=== PATIENT | female | born 1950 | race Asian ===

== ENCOUNTER 2019-04-24 12:58 | Outpatient (CLI) | payer MEDICARE ==
--- NOTE | 2019-04-24 13:43 | ULT ---
EXAM: Right lower extremity venous Doppler HISTORY: Patient diagnosed with DVT in the right foot after right hip placement surgery in December. Patient has been on Eliquis. Right lower extremity edema. COMPARISON: None available. FINDINGS: Grayscale, color-flow, Doppler evaluation, spectral analysis of the right lower extremity venous stru ctures is performed with 2-D imaging. The right common femoral, superficial femoral, popliteal, posterior tibial, proximal greater saphenous and profunda femoral veins are imaged. There is normal luminal compressibility, flow, and augmentation in the visualized deep venous structu res of the right lower extremity. IMPRESSION: No evidence of a deep vein thrombosis in the visualized deep venous structures right lower extremity.
== END 2019-04-24 12:59 | disposition home or self-care (01) ==
LOC: SCSULT 12:58
PROVIDERS: ATTEND Family Medicine
DX: I82.411 Acute embolism and thrombosis of right femoral vein (principal)

== ENCOUNTER 2021-04-24 16:16 | Day surgery (SDC) | payer MEDICARE ==
[2021-04-24 17:35] VITALS: BMI 26.5
[2021-04-24] MEDS ORDERED: Acetaminophen 500 MG TAB PO SCH (20:45)
[2021-04-24] MEDS ORDERED: diphenhydrAMINE 25 MG CAP PO SCH (20:45)
[2021-04-24 23:54] VITALS: TEMP 98.3
[2021-04-25 04:47] LABS: Band 6 % (5-11); Eosinophils 5 % (0-10); Lymphocytes 27 % (21-51); MDiff Complete? YES; Metamyelocyte 1 % (0-0); Monocytes 6 % (0-10); Neutrophil 55 % (42-75); Nucleated RBC 4 % (0); Platelet Morphology Comment Appears Decreased
[2021-04-25 04:48] LABS: Hemoglobin 10.1 g/dL (12.0-16.0); Mean Corpuscular HGB CONC 34.8 g/dL (32.0-36.0); Mean Corpuscular Hemoglobin 31.6 pg (27.0-31.0); Mean Corpuscular Volume 90.7 fL (78.0-98.0); Mean Platelet Volume 10.7 fL (7.4-10.4); Platelet Count 57 thou/uL (130-400); RBC Distribution Width 15.8 % (11.5-14.5); Red Blood Cell (RBC) Count 3.19 mill/uL (4.20-5.40); White Blood Cell (WBC) Count 11.5 thou/uL (4.8-10.8)
[2021-04-25 05:06] VITALS: BP 181/82
== END 2021-04-25 05:44 | disposition home or self-care (01) ==
LOC: ONC/OP 16:16 → ONC 16:36 → ONC/OP 04-25 05:44
PROVIDERS: ATTEND Internal Medicine Hematology & Oncology
PROC: 30233N1 Transfusion of Nonautologous Red Blood Cells into Peripheral Vein, Percutaneous Approach (ICD-10-PCS; principal; 2021-04-24)
DX: D64.9 Anemia, unspecified (principal); D69.6 Thrombocytopenia, unspecified; E11.22 Type 2 diabetes mellitus with diabetic chronic kidney disease; N18.4 Chronic kidney disease, stage 4 (severe); N25.81 Secondary hyperparathyroidism of renal origin; D63.1 Anemia in chronic kidney disease
CPT/HCPCS: 36415; 36430; 80048; 82306; 83036; 83970; 85025; 86850; 86900; 86901; P9016

== ENCOUNTER 2021-06-17 11:15 | Day surgery (SDC) | payer MEDICARE ==
[2021-06-17] MEDS ORDERED: Sodium Chloride 0.9% 20 ML ONE ×2 (11:39→12:09)
[2021-06-17] MEDS ORDERED: Acetaminophen 500 MG TAB PO PRN (12:11)
[2021-06-17] MEDS ORDERED: diphenhydrAMINE 25 MG CAP PO PRN (12:11)
[2021-06-17] MEDS ORDERED: Amlodipine 5 MG TAB PO SCH (15:00)
[2021-06-17 15:21] VITALS: BP 198/83; TEMP 98.5
== END 2021-06-17 17:26 | disposition home or self-care (01) ==
LOC: ONC/OP 11:15
PROVIDERS: ATTEND Internal Medicine Hematology & Oncology
PROC: 30233N1 Transfusion of Nonautologous Red Blood Cells into Peripheral Vein, Percutaneous Approach (ICD-10-PCS; principal; 2021-06-17)
DX: D64.9 Anemia, unspecified (principal); D69.6 Thrombocytopenia, unspecified
CPT/HCPCS: 36430; 86850; 86900; 86901; P9016

== ENCOUNTER 2021-08-06 10:33 | Day surgery (SDC) | payer MEDICARE ==
[2021-08-06] MEDS ORDERED: diphenhydrAMINE 25 MG CAP ONE (11:20)
[2021-08-06] MEDS ORDERED: Acetaminophen 500 MG TAB ONE (11:20)
[2021-08-06] MEDS ORDERED: Sodium Chloride 0.9% 10 ML ONE ×2 (11:20)
[2021-08-06] MEDS ORDERED: diphenhydrAMINE 25 MG CAP PO SCH (12:15)
[2021-08-06] MEDS ORDERED: Acetaminophen 500 MG TAB PO SCH (12:15)
[2021-08-06 14:17] VITALS: TEMP 98
[2021-08-06 16:04] VITALS: BP 143/65
== END 2021-08-06 16:05 | disposition home or self-care (01) ==
LOC: ONC/OP 10:33
PROVIDERS: ATTEND Internal Medicine Hematology & Oncology
PROC: 30233N1 Transfusion of Nonautologous Red Blood Cells into Peripheral Vein, Percutaneous Approach (ICD-10-PCS; principal; 2021-08-06)
DX: D64.9 Anemia, unspecified (principal); D69.6 Thrombocytopenia, unspecified
CPT/HCPCS: 36430; 86850; 86900; 86901; P9016

== ENCOUNTER 2021-09-16 11:47 | Day surgery (SDC) | payer MEDICARE ==
[2021-09-16] MEDS ORDERED: Sodium Chloride 0.9% 10 ML ONE (11:56)
[2021-09-16] MEDS ORDERED: Acetaminophen 500 MG TAB ONE (12:22)
[2021-09-16] MEDS ORDERED: diphenhydrAMINE 25 MG CAP ONE (12:22)
[2021-09-16 15:00] VITALS: BP 182/72; TEMP 98.1
== END 2021-09-16 16:36 | disposition home or self-care (01) ==
LOC: ONC/OP 11:47
PROVIDERS: ATTEND Internal Medicine Hematology & Oncology
PROC: 30233N1 Transfusion of Nonautologous Red Blood Cells into Peripheral Vein, Percutaneous Approach (ICD-10-PCS; principal; 2021-09-16)
DX: D64.9 Anemia, unspecified (principal); D69.6 Thrombocytopenia, unspecified
CPT/HCPCS: 36430; 86850; 86900; 86901; P9016

== ENCOUNTER 2021-10-14 09:12 | Day surgery (SDC) | payer MEDICARE ==
[2021-10-14] MEDS ORDERED: Sodium Chloride 0.9% 10 ML ONE ×2 (09:31)
[2021-10-14] MEDS ORDERED: Acetaminophen 500 MG TAB ONE (09:31)
[2021-10-14] MEDS ORDERED: diphenhydrAMINE 25 MG CAP ONE (09:31)
[2021-10-14] MEDS ORDERED: Acetaminophen 500 MG TAB PO PRN (09:32)
[2021-10-14] MEDS ORDERED: diphenhydrAMINE 25 MG CAP PO PRN (09:33)
[2021-10-14 12:54] VITALS: BP 127/60; TEMP 98
== END 2021-10-14 12:55 | disposition home or self-care (01) ==
LOC: ONC/OP 09:12
PROVIDERS: ATTEND Internal Medicine Hematology & Oncology
PROC: 30233N1 Transfusion of Nonautologous Red Blood Cells into Peripheral Vein, Percutaneous Approach (ICD-10-PCS; principal; 2021-10-14)
DX: D64.9 Anemia, unspecified (principal); D69.6 Thrombocytopenia, unspecified
CPT/HCPCS: 36430; 86850; 86900; 86901; P9016

== ENCOUNTER 2021-12-23 22:45 | Emergency (ER) | payer MEDICARE ==
[2021-12-23] MEDS ORDERED: Fentanyl 100 MCG/2 ML VIAL ONE (23:42)
[2021-12-23 23:56] LABS: ALT (SGPT) 7 U/L (8-55); AST (SGOT) 23 U/L (5-34); Anion Gap 18 mmol/L (10-20); BUN (Urea Nitrogen) 63 mg/dL (9.8-20.1); Bilirubin, Total 0.4 mg/dL (0.2-1.2); Calc. Creatinine Clearance 0 mL/min (70-130); Carbon Dioxide 17 mmol/L (23-31); Chloride 106 mmol/L (98-107); Globulin 3.3 g/dL (2.4-3.5); Glucose 161 mg/dL (83-110); Potassium 5.6 mmol/L (3.5-5.1); Protein, Total 7.3 g/dL (5.8-8.1); Sodium 135 mmol/L (136-145)
[2021-12-24 00:17] LABS: Band 15 % (5-11); Hemoglobin 7.7 g/dL (12.0-16.0); Hypochromia SLIGHT = 6-15 cells (100X) (0-5/hpf); Lymphocytes 19 % (21-51); MDiff Complete? YES; Mean Corpuscular HGB CONC 32.9 g/dL (32.0-36.0); Mean Corpuscular Hemoglobin 30.4 pg (27.0-31.0); Mean Corpuscular Volume 92.3 fL (78.0-98.0); Mean Platelet Volume 10.8 fL (7.4-10.4); Metamyelocyte 3 % (0-0); Monocytes 10 % (0-10); Myelocyte 2 % (0-0); Neutrophil 51 % (42-75); Nucleated RBC 1 % (0); Platelet Count 56 thou/uL (130-400); Platelet Morphology Comment Appears Decreased; RBC Distribution Width 18.2 % (11.5-14.5); Red Blood Cell (RBC) Count 2.52 mill/uL (4.20-5.40)
[2021-12-24 01:37] LABS: Alkaline Phosphatase 139 U/L (40-110)
[2021-12-24] MEDS ORDERED: HYDROcodone/Acetaminophen 10/325 mg Tablet ONE (01:42)
== END 2021-12-24 01:50 | disposition home or self-care (01) ==
LOC: ERS 22:45
DX: S30.0XXA Contusion of lower back and pelvis, initial encounter (principal); S30.1XXA Contusion of abdominal wall, initial encounter; I12.9 Hypertensive chronic kidney disease with stage 1 through stage 4 chronic kidney disease, or unspecified chronic kidney disease; E11.22 Type 2 diabetes mellitus with diabetic chronic kidney disease; N18.4 Chronic kidney disease, stage 4 (severe); D63.1 Anemia in chronic kidney disease; Z79.899 Other long term (current) drug therapy; W19.XXXA Unspecified fall, initial encounter
CPT/HCPCS: 36415; 71250; 74177; 80053; 84484; 85025; 93005; 94760; 96374; J3010

== ENCOUNTER 2022-01-06 11:17 | Day surgery (SDC) | payer MEDICARE ==
[2022-01-06] MEDS ORDERED: Acetaminophen 500 MG TAB ONE (12:09)
[2022-01-06] MEDS ORDERED: diphenhydrAMINE 25 MG CAP ONE (12:09)
[2022-01-06 15:05] VITALS: BP 195/81; TEMP 97.9
== END 2022-01-06 15:05 | disposition home or self-care (01) ==
LOC: ONC/OP 11:17
PROVIDERS: ATTEND Internal Medicine Hematology & Oncology
PROC: 30233N1 Transfusion of Nonautologous Red Blood Cells into Peripheral Vein, Percutaneous Approach (ICD-10-PCS; principal; 2022-01-06)
DX: D64.9 Anemia, unspecified (principal); D69.6 Thrombocytopenia, unspecified
CPT/HCPCS: 36430; 86850; 86900; 86901; P9016

== ENCOUNTER 2022-02-02 16:04 | Day surgery (SDC) | payer MEDICARE ==
[2022-02-02] MEDS ORDERED: Acetaminophen 500 MG TAB PO PRN (16:16)
[2022-02-02] MEDS ORDERED: diphenhydrAMINE 25 MG CAP PO PRN (16:17)
[2022-02-02 16:36] VITALS: BMI 24.5
[2022-02-02] MEDS ORDERED: Acetaminophen 500 MG TAB ONE (17:31)
[2022-02-02] MEDS ORDERED: diphenhydrAMINE 50 MG/ML VIAL ONE (17:31)
[2022-02-02] MEDS ORDERED: diphenhydrAMINE 25 MG CAP ONE (17:35)
== END 2022-02-02 21:55 | disposition home or self-care (01) ==
LOC: SDC 16:04
PROVIDERS: ATTEND Internal Medicine Hematology & Oncology
PROC: 30233N1 Transfusion of Nonautologous Red Blood Cells into Peripheral Vein, Percutaneous Approach (ICD-10-PCS; principal; 2022-02-02)
DX: D64.9 Anemia, unspecified (principal); D69.6 Thrombocytopenia, unspecified; N18.4 Chronic kidney disease, stage 4 (severe); N25.81 Secondary hyperparathyroidism of renal origin
CPT/HCPCS: 36430; 80048; 83970; 86850; 86900; 86901; 86920; P9016; J1200

== ENCOUNTER 2022-03-31 09:56 | Day surgery (SDC) | payer MEDICARE ==
[2022-03-31] MEDS ORDERED: Acetaminophen 500 MG TAB ONE (10:08)
[2022-03-31] MEDS ORDERED: diphenhydrAMINE 25 MG CAP ONE (10:08)
[2022-03-31 13:57] VITALS: BP 171/71; TEMP 98.2
== END 2022-03-31 13:58 | disposition home or self-care (01) ==
LOC: ONC/OP 09:56
PROVIDERS: ATTEND Internal Medicine Hematology & Oncology
PROC: 30233N1 Transfusion of Nonautologous Red Blood Cells into Peripheral Vein, Percutaneous Approach (ICD-10-PCS; principal; 2022-03-31)
DX: D64.9 Anemia, unspecified (principal); D69.6 Thrombocytopenia, unspecified
CPT/HCPCS: 36430; 86850; 86900; 86901; P9016

== ENCOUNTER 2022-04-20 13:06 | Outpatient (CLI) | payer MEDICARE | END 2022-04-20 13:07 | disposition home or self-care (01) | LOC: LABBT 13:06 | PROVIDERS: ATTEND Surgery | DX: Z01.818 Encounter for other preprocedural examination (principal); D75.81 Myelofibrosis; Z20.822 Contact with and (suspected) exposure to COVID-19 | CPT/HCPCS: 71046; 87811; 93005; 93010 ==

== ENCOUNTER 2022-04-23 08:06 | Day surgery (SDC) | payer MEDICARE ==
[2022-04-21 11:41] VITALS: BMI 22.1
[2022-04-23] MEDS ORDERED: Lidocaine 1% MPF 2 ML VIAL ONE (08:33)
[2022-04-23] MEDS ORDERED: Acetaminophen 500 MG TAB ONE (08:33)
[2022-04-23] MEDS ORDERED: CEFAZOLIN 2 GM VIAL ONE (08:33)
[2022-04-23] MEDS ORDERED: Sodium Chloride 0.9% 100 ML ONE (08:34)
[2022-04-23] MEDS ORDERED: Bupivacaine/Epinephrine 0.25% 30 ML VIAL ONE (09:24)
[2022-04-23] MEDS ORDERED: fentaNYL Citrate/PF 100 MCG/2 ML SYRINGE ONE (09:28)
[2022-04-23] MEDS ORDERED: Propofol 500 MG/50 ML VIAL ONE (09:29)
[2022-04-23] MEDS ORDERED: Ondansetron PF 4 MG/2 ML Vial ONE ×2 (09:29→09:42)
[2022-04-23] MEDS ORDERED: Famotidine/PF 20 mg/2ml Vial ONE (09:29)
[2022-04-23] MEDS ORDERED: Metoclopramide HCl 10 MG/2 ML VIAL ONE ×2 (09:29→09:42)
[2022-04-23] MEDS ORDERED: ePHEDrine 50 MG/ML VIAL ONE (09:42)
[2022-04-23] MEDS ORDERED: Phenylephrine 10 MG/ML VIAL ONE (09:42)
[2022-04-23] MEDS ORDERED: Lidocaine 1% PF 5 ML VIAL ONE (09:42)
[2022-04-23 09:57] LABS: Anion Gap 13 mmol/L (10-20); BUN (Urea Nitrogen) 51 mg/dL (9.8-20.1); Calc. Creatinine Clearance 15 mL/min (70-130); Calcium 9.1 mg/dL (7.8-10.44); Carbon Dioxide 21 mmol/L (23-31); Chloride 109 mmol/L (98-107); Estimated GFR 17; Glucose 107 mg/dL (83-110); Potassium 4.4 mmol/L (3.5-5.1); Sodium 139 mmol/L (136-145)
== END 2022-04-23 11:40 | disposition home or self-care (01) ==
LOC: SDC 08:06
PROVIDERS: ATTEND Surgery
PROC: 02HV33Z Insertion of Infusion Device into Superior Vena Cava, Percutaneous Approach (ICD-10-PCS; principal; 2022-04-23)
DX: D75.81 Myelofibrosis (principal); I12.9 Hypertensive chronic kidney disease with stage 1 through stage 4 chronic kidney disease, or unspecified chronic kidney disease; E11.22 Type 2 diabetes mellitus with diabetic chronic kidney disease; N18.30 Chronic kidney disease, stage 3 unspecified; M10.30 Gout due to renal impairment, unspecified site; E78.5 Hyperlipidemia, unspecified; Z79.899 Other long term (current) drug therapy; Z88.2 Allergy status to sulfonamides
CPT/HCPCS: 36561; 80048; C1788; J0690; J1642; J2405; J2704; J2765; J3490; S0028

== ENCOUNTER 2022-10-07 09:17 | Day surgery (SDC) | payer MEDICARE ==
[~2022-10-07 09:17] MED LIST: Acetaminophen 500 MG TAB PO SCH; diphenhydrAMINE 25 MG CAP PO SCH
[2022-10-07] MEDS ORDERED: Acetaminophen 500 MG TAB ONE (10:36)
[2022-10-07] MEDS ORDERED: diphenhydrAMINE 25 MG CAP ONE (10:36)
[2022-10-07 17:29] VITALS: BP 187/82; TEMP 98
== END 2022-10-07 17:31 | disposition home or self-care (01) ==
LOC: ONC/OP 09:17
PROVIDERS: ATTEND Internal Medicine Hematology & Oncology
PROC: 30233N1 Transfusion of Nonautologous Red Blood Cells into Peripheral Vein, Percutaneous Approach (ICD-10-PCS; principal; 2022-10-07)
DX: D64.9 Anemia, unspecified (principal); D69.6 Thrombocytopenia, unspecified
CPT/HCPCS: 36430; 86850; 86900; 86901; J1642; P9016

== ENCOUNTER 2022-10-08 19:05 | Inpatient (IN) | payer MEDICARE ==
[2022-10-08 20:14] LABS: Hemoglobin 11.1 g/dL (12.0-16.0); Mean Corpuscular HGB CONC 32.8 g/dL (32.0-36.0); Mean Corpuscular Hemoglobin 29.5 pg (27.0-31.0); Mean Platelet Volume 6.4 fL (7.4-10.4); Platelet Count 61 10x3/uL (130-400); RBC Distribution Width 18.1 % (11.5-14.5); Red Blood Cell (RBC) Count 3.77 mill/uL (4.20-5.40); White Blood Cell (WBC) Count 19.5 10x3/uL (4.8-10.8)
[2022-10-08 20:29] LABS: ALT (SGPT) 13 U/L (8-55); AST (SGOT) 22 U/L (5-34); Albumin 3.8 g/dL (3.4-4.8); Alkaline Phosphatase 198 U/L (40-110); Anion Gap 14 mmol/L (10-20); BUN (Urea Nitrogen) 52 mg/dL (9.8-20.1); Calc. Creatinine Clearance 0 mL/min (70-130); Calcium 9.7 mg/dL (7.8-10.44); Carbon Dioxide 17 mmol/L (23-31); Chloride 110 mmol/L (98-107); Estimated GFR 15; Globulin 3.5 g/dL (2.4-3.5); Glucose 128 mg/dL (83-110); Potassium 5.1 mmol/L (3.5-5.1); Protein, Total 7.3 g/dL (5.8-8.1); Sodium 136 mmol/L (136-145)
[2022-10-08 20:46] LABS: Anisocytosis SLIGHT = 6-15 cells (100X) (0-5/hpf); Band 16 % (5-11); Blast 1 % (0-0); Eosinophils 2 % (0-10); Lymphocytes 7 % (21-51); MDiff Complete? YES; Metamyelocyte 2 % (0-0); Monocytes 6 % (0-10); Myelocyte 1 % (0-0); Neutrophil 62 % (42-75); Nucleated RBC 4 % (0); Platelet Morphology Comment Appears Decreased; Reflex for Review?? NO; Tear Drops SLIGHT = 2-5 cells (100X) (0-1/hpf)
[2022-10-08 20:47] LABS: CKMB 1.9 ng/mL (0-6.6)
[2022-10-08] MEDS ORDERED: Nitroglycerin 0.4 MG TAB 1 EACH ONE (21:37)
[2022-10-08] MEDS ORDERED: Furosemide 40 MG/4 ML VIAL ONE (21:37)
[2022-10-08] MEDS ORDERED: Cefepime 2 GM VIAL ONE (21:37)
[2022-10-08] MEDS ORDERED: VANCOMYCIN 1.25 GM/250 ML BAG 1.25 GM in Premix Bag 1 BAG IVPB SCH (21:45)
[2022-10-08] MEDS ORDERED: Acetaminophen 500 MG TAB ONE (22:22)
[2022-10-09] MEDS ORDERED: Ondansetron PF 4 MG/2 ML Vial IVP PRN (00:31)
[2022-10-09] MEDS ORDERED: Acetaminophen 325 MG TAB PO PRN (00:31)
[2022-10-09] MEDS ORDERED: NIFEdipine XL 90 MG TAB PO SCH (00:45)
[2022-10-09] MEDS ORDERED: Vancomycin Dose by Levels Sliding Scale (Wt <71) FS SCH (01:15)
[2022-10-09 01:48] LABS: Troponin I 0.072 ng/mL (< 0.028)
[2022-10-09] MEDS ORDERED: Nitroglycerin 2% Ointment 1 INCH/1 GM Packet TOP SCH (02:30)
[2022-10-09 04:53] LABS: Troponin I 0.056 ng/mL (< 0.028)
[2022-10-09 04:58] LABS: Anion Gap 14 mmol/L (10-20); BUN (Urea Nitrogen) 56 mg/dL (9.8-20.1); Calc. Creatinine Clearance 13 mL/min (70-130); Calcium 9.1 mg/dL (7.8-10.44); Carbon Dioxide 16 mmol/L (23-31); Chloride 109 mmol/L (98-107); Estimated GFR 15; Glucose 264 mg/dL (83-110); Potassium 4.7 mmol/L (3.5-5.1); Sodium 134 mmol/L (136-145)
[2022-10-09 05:16] LABS: Mean Corpuscular HGB CONC 33.3 g/dL (32.0-36.0); Mean Corpuscular Hemoglobin 30.1 pg (27.0-31.0); Mean Corpuscular Volume 90.3 fl (78.0-98.0); Platelet Count 60 10x3/uL (130-400); RBC Distribution Width 17.8 % (11.5-14.5); Red Blood Cell (RBC) Count 3.32 mill/uL (4.20-5.40); White Blood Cell (WBC) Count 18.4 10x3/uL (4.8-10.8)
[2022-10-09 05:17] LABS: Anisocytosis SLIGHT = 6-15 cells (100X) (0-5/hpf); Band 6 % (5-11); Eosinophils 1 % (0-10); Lymphocytes 4 % (21-51); MDiff Complete? YES; Monocytes 5 % (0-10); Myelocyte 1 % (0-0); Neutrophil 83 % (42-75); Nucleated RBC 1 % (0); Platelet Morphology Comment Appears Decreased; Tear Drops SLIGHT = 2-5 cells (100X) (0-1/hpf)
[2022-10-09] MEDS ORDERED: Dextrose 50% Abboject 50 ML SYRINGE IVP PRN (06:00)
[2022-10-09] MEDS ORDERED: Dextrose 5% in Water 1,000 ML IV PRN ×2 (06:00→12:04)
[2022-10-09] MEDS ORDERED: HumaLOG 300 UNITS/3 ML VIAL SC PRN (06:00)
[2022-10-09] MEDS: Furosemide 20 MG/2 ML VIAL SLOW IVP SCH ×2 (06:36→14:52)
[2022-10-09] MEDS: HumaLOG 300 UNITS/3 ML VIAL SC PRN (06:37)
[2022-10-09 07:01] LABS: Magnesium 2.1 mg/dL (1.6-2.6)
[2022-10-09 07:33] LABS: SARS-CoV-2 NAA Rapid Test Not Detected (NotDetected)
[2022-10-09] MEDS: predniSONE 20 MG TAB PO SCH (09:32)
[2022-10-09] MEDS: hydrALAZINE 25 MG TAB PO SCH ×3 (09:32→21:20)
[2022-10-09] MEDS: NIFEdipine XL 90 MG TAB PO SCH (09:33)
[2022-10-09] MEDS ORDERED: Dextrose 50% Abboject 50 ML SYRINGE SLOW IVP PRN (12:04)
[2022-10-09 14:19] LABS: Legionella Urinary Ag Negative (Negative)
[2022-10-09] MEDS: Sodium Bicarbonate Tab 325 MG TAB PO SCH ×2 (14:52→21:20)
[2022-10-09] MEDS ORDERED: Non-Formulary Item 1 EACH (Hydralazine Hcl [Hydralazine Hcl] 100 MG Tablet) PO SCH (15:00)
[2022-10-09] MEDS ORDERED: Cefepime 1 GM in Sodium Chloride 0.9% 100 ML IVPB SCH (21:00)
[2022-10-09 22:58] LABS: Vancomycin, Random 18.9 ug/mL (See Comment)
[2022-10-09] MEDS ORDERED: Cefepime 2 GM in Sodium Chloride 0.9% 100 ML IVPB SCH (23:00)
[2022-10-09] MEDS ORDERED: Vancomycin HCl 250 MG in Sodium Chloride 0.9% 100 ML IV SCH (23:59)
[2022-10-10 05:33] LABS: Anion Gap 14 mmol/L (10-20); BUN (Urea Nitrogen) 59 mg/dL (9.8-20.1); Calc. Creatinine Clearance 13 mL/min (70-130); Calcium 9.5 mg/dL (7.8-10.44); Carbon Dioxide 18 mmol/L (23-31); Chloride 108 mmol/L (98-107); Estimated GFR 14; Glucose 114 mg/dL (83-110); Magnesium 2.2 mg/dL (1.6-2.6); Potassium 4.3 mmol/L (3.5-5.1); Sodium 136 mmol/L (136-145); Uric Acid 13.6 mg/dL (2.6-6.0)
[2022-10-10 05:41] LABS: Vancomycin, Random 23.6 ug/mL (See Comment)
[2022-10-10 05:49] LABS: Band 4 % (5-11); Eosinophils 1 % (0-10); Hemoglobin 9.5 g/dL (12.0-16.0); Hypochromia SLIGHT = 6-15 cells (100X) (0-5/hpf); Lymphocytes 13 % (21-51); MDiff Complete? YES; Mean Corpuscular HGB CONC 32.8 g/dL (32.0-36.0); Mean Corpuscular Hemoglobin 29.8 pg (27.0-31.0); Mean Corpuscular Volume 91.1 fl (78.0-98.0); Mean Platelet Volume 11.1 fL (7.4-10.4); Monocytes 11 % (0-10); Neutrophil 70 % (42-75); Nucleated RBC 1 % (0); Platelet Count 60 10x3/uL (130-400); Platelet Morphology Comment Appears Decreased; RBC Distribution Width 17.9 % (11.5-14.5); Reactive Lymphocytes 1 % (0-10); Red Blood Cell (RBC) Count 3.17 mill/uL (4.20-5.40); White Blood Cell (WBC) Count 19.6 10x3/uL (4.8-10.8)
[2022-10-10] MEDS: Furosemide 20 MG/2 ML VIAL SLOW IVP SCH ×2 (05:57→14:23)
[2022-10-10] MEDS: Aspirin 81 mg Enteric Coated Tablet PO SCH (08:36)
[2022-10-10] MEDS: Atorvastatin Calcium 10 MG TAB PO SCH (08:36)
[2022-10-10] MEDS: predniSONE 20 MG TAB PO SCH (08:36)
[2022-10-10] MEDS: Sodium Bicarbonate Tab 325 MG TAB PO SCH ×3 (08:36→21:00)
[2022-10-10] MEDS: NIFEdipine XL 90 MG TAB PO SCH (08:36)
[2022-10-10] MEDS: Allopurinol 100 MG TAB PO SCH (08:36)
[2022-10-10] MEDS: hydrALAZINE 25 MG TAB PO SCH ×3 (08:36→21:00)
[2022-10-10] MEDS ORDERED: Cefepime 0.5 GM, Admixture Fee 1 EACH in Sodium Chloride 0.9% 100 ML IVPB SCH (23:00)
[2022-10-11 00:09] LABS: Vancomycin, Random 18.2 ug/mL (See Comment)
[2022-10-11] MEDS ORDERED: Vancomycin HCl 250 MG in Sodium Chloride 0.9% 100 ML IV SCH (00:30)
[2022-10-11] MEDS: Furosemide 20 MG/2 ML VIAL SLOW IVP SCH (05:09)
[2022-10-11 06:07] LABS: Anion Gap 15 mmol/L (10-20); BUN (Urea Nitrogen) 59 mg/dL (9.8-20.1); Calc. Creatinine Clearance 12 mL/min (70-130); Calcium 9.3 mg/dL (7.8-10.44); Carbon Dioxide 19 mmol/L (23-31); Chloride 105 mmol/L (98-107); Estimated GFR 13; Glucose 130 mg/dL (83-110); Magnesium 2.2 mg/dL (1.6-2.6); Potassium 3.4 mmol/L (3.5-5.1); Sodium 136 mmol/L (136-145)
[2022-10-11 06:23] LABS: Band 5 % (5-11); Eosinophils 3 % (0-10); Hemoglobin 9.5 g/dL (12.0-16.0); Lymphocytes 9 % (21-51); MDiff Complete? YES; Mean Corpuscular HGB CONC 33.4 g/dL (32.0-36.0); Mean Corpuscular Volume 89.6 fl (78.0-98.0); Mean Platelet Volume 6.8 fL (7.4-10.4); Monocytes 8 % (0-10); Neutrophil 75 % (42-75); Nucleated RBC 9 % (0); Platelet Count 54 10x3/uL (130-400); Platelet Morphology Comment Appears Decreased; RBC Distribution Width 17.4 % (11.5-14.5); RBC Morphology Normal; Red Blood Cell (RBC) Count 3.16 mill/uL (4.20-5.40); White Blood Cell (WBC) Count 16.9 10x3/uL (4.8-10.8)
[2022-10-11] MEDS: Aspirin 81 mg Enteric Coated Tablet PO SCH (07:35)
[2022-10-11] MEDS: Sodium Bicarbonate Tab 325 MG TAB PO SCH ×3 (07:35→22:31)
[2022-10-11] MEDS: hydrALAZINE 25 MG TAB PO SCH ×3 (07:35→21:02)
[2022-10-11] MEDS: predniSONE 20 MG TAB PO SCH (07:36)
[2022-10-11] MEDS: NIFEdipine XL 90 MG TAB PO SCH (07:37)
[2022-10-11] MEDS: Allopurinol 100 MG TAB PO SCH (07:37)
[2022-10-11] MEDS: Atorvastatin Calcium 10 MG TAB PO SCH (07:37)
[2022-10-11] MEDS: Labetalol HCl 100 MG TAB PO SCH ×3 (07:51→21:02)
[2022-10-11] MEDS: HumaLOG 300 UNITS/3 ML VIAL SC PRN (12:08)
[2022-10-11] MEDS ORDERED: Sodium Chloride 0.9% 1,000 ML IV SCH (20:15)
[2022-10-11 22:12] LABS: L.pneumophilia Abs <0.91 OD ratio (0.00-0.90)
[2022-10-12 00:29] LABS: Vancomycin, Random 18.9 ug/mL (See Comment)
[2022-10-12] MEDS ORDERED: Vancomycin HCl 250 MG in Sodium Chloride 0.9% 100 ML IV SCH (00:45)
[2022-10-12] MEDS: predniSONE 20 MG TAB PO SCH (07:58)
[2022-10-12] MEDS: Dextrose 5% in Water 1,000 ML IV SCH ×2 (08:03→21:10)
[2022-10-12] MEDS: Aspirin 81 mg Enteric Coated Tablet PO SCH (08:48)
[2022-10-12] MEDS: Atorvastatin Calcium 10 MG TAB PO SCH (08:48)
[2022-10-12] MEDS: Labetalol HCl 100 MG TAB PO SCH ×3 (08:48→21:15)
[2022-10-12] MEDS: Allopurinol 100 MG TAB PO SCH (08:48)
[2022-10-12] MEDS: Sodium Bicarbonate Tab 325 MG TAB PO SCH ×3 (08:49→21:10)
[2022-10-12] MEDS: NIFEdipine XL 90 MG TAB PO SCH (08:49)
[2022-10-12] MEDS: hydrALAZINE 25 MG TAB PO SCH ×3 (08:49→21:10)
[2022-10-12 11:17] LABS: Anion Gap 15 mmol/L (10-20); BUN (Urea Nitrogen) 55 mg/dL (9.8-20.1); Calc. Creatinine Clearance 11 mL/min (70-130); Calcium 8.9 mg/dL (7.8-10.44); Carbon Dioxide 21 mmol/L (23-31); Chloride 102 mmol/L (98-107); Estimated GFR 12; Glucose 253 mg/dL (83-110); Sodium 134 mmol/L (136-145)
[2022-10-12] MEDS: HumaLOG 300 UNITS/3 ML VIAL SC PRN (11:25)
[2022-10-12 23:46] LABS: Vancomycin, Random 15.5 ug/mL (See Comment)
[2022-10-13] MEDS ORDERED: Vancomycin HCl 250 MG in Sodium Chloride 0.9% 100 ML IV SCH (00:45)
[2022-10-13] MEDS: Aspirin 81 mg Enteric Coated Tablet PO SCH (08:20)
[2022-10-13] MEDS: predniSONE 20 MG TAB PO SCH (08:23)
[2022-10-13] MEDS: Atorvastatin Calcium 10 MG TAB PO SCH (08:23)
[2022-10-13] MEDS: NIFEdipine XL 90 MG TAB PO SCH (08:24)
[2022-10-13] MEDS: Allopurinol 100 MG TAB PO SCH (08:24)
[2022-10-13] MEDS: hydrALAZINE 25 MG TAB PO SCH ×3 (08:25→21:56)
[2022-10-13] MEDS: Labetalol HCl 100 MG TAB PO SCH ×3 (08:25→21:57)
[2022-10-13] MEDS: Sodium Bicarbonate Tab 325 MG TAB PO SCH ×3 (08:32→21:58)
[2022-10-13] MEDS ORDERED: CEFAZOLIN 2 GM in Sodium Chloride 0.9% 100 ML IVPB SCH (13:45)
[2022-10-13 15:46] LABS: Albumin 3.2 g/dL (3.4-4.8); Anion Gap 14 mmol/L (10-20); BUN (Urea Nitrogen) 54 mg/dL (9.8-20.1); BUN/Creatinine Ratio 14.56; Calc. Creatinine Clearance 12 mL/min (70-130); Calcium 8.2 mg/dL (7.8-10.44); Carbon Dioxide 20 mmol/L (23-31); Chloride 99 mmol/L (98-107); Estimated GFR 12; Glucose 189 mg/dL (83-110); Phosphorus 4.8 mg/dL (2.3-4.7); Potassium 4.4 mmol/L (3.5-5.1); Sodium 129 mmol/L (136-145)
[2022-10-13] MEDS: Dextrose 5% in Water 1,000 ML IV SCH (16:12)
[2022-10-13 23:30] LABS: Vancomycin, Random 16.6 ug/mL (See Comment)
[2022-10-14] MEDS ORDERED: Vancomycin HCl 250 MG in Sodium Chloride 0.9% 100 ML IV SCH (00:15)
[2022-10-14] MEDS ORDERED: Vancomycin HCl 500 MG in Sodium Chloride 0.9% 100 ML IV SCH (00:15)
[2022-10-14] MEDS: Dextrose 5% in Water 1,000 ML IV SCH (05:56)
[2022-10-14 06:01] LABS: Albumin 2.9 g/dL (3.4-4.8); Anion Gap 15 mmol/L (10-20); BUN (Urea Nitrogen) 54 mg/dL (9.8-20.1); BUN/Creatinine Ratio 14.59; Calc. Creatinine Clearance 12 mL/min (70-130); Calcium 7.9 mg/dL (7.8-10.44); Carbon Dioxide 19 mmol/L (23-31); Chloride 96 mmol/L (98-107); Estimated GFR 12; Glucose 280 mg/dL (83-110); Potassium 3.2 mmol/L (3.5-5.1); Sodium 127 mmol/L (136-145)
[2022-10-14] MEDS: Sodium Chloride 0.9% 1,000 ML IV SCH ×3 (09:47→23:24)
[2022-10-14] MEDS: hydrALAZINE 25 MG TAB PO SCH ×3 (09:48→23:17)
[2022-10-14] MEDS: predniSONE 20 MG TAB PO SCH (09:48)
[2022-10-14] MEDS: Aspirin 81 mg Enteric Coated Tablet PO SCH (09:48)
[2022-10-14] MEDS: Atorvastatin Calcium 10 MG TAB PO SCH (09:48)
[2022-10-14] MEDS: Allopurinol 100 MG TAB PO SCH (09:48)
[2022-10-14] MEDS: Sodium Bicarbonate Tab 325 MG TAB PO SCH ×3 (09:50→23:16)
[2022-10-14] MEDS: NIFEdipine XL 90 MG TAB PO SCH (09:50)
[2022-10-14] MEDS: Labetalol HCl 100 MG TAB PO SCH ×3 (09:50→23:17)
[2022-10-14 16:00] VITALS: BMI 23.5
[2022-10-14] MEDS: HumaLOG 300 UNITS/3 ML VIAL SC PRN (16:39)
[2022-10-15] MEDS ORDERED: Sodium Chloride 0.9% 1,000 ML IV SCH (01:30)
[2022-10-15] MEDS: Labetalol HCl 100 MG TAB PO SCH ×4 (01:59→20:39)
[2022-10-15 05:25] LABS: Albumin 3.1 g/dL (3.4-4.8); Anion Gap 13 mmol/L (10-20); BUN (Urea Nitrogen) 58 mg/dL (9.8-20.1); Calc. Creatinine Clearance 13 mL/min (70-130); Carbon Dioxide 20 mmol/L (23-31); Chloride 103 mmol/L (98-107); Estimated GFR 13; Glucose 93 mg/dL (83-110); Phosphorus 5.6 mg/dL (2.3-4.7); Potassium 3.4 mmol/L (3.5-5.1); Sodium 133 mmol/L (136-145)
[2022-10-15] MEDS ORDERED: Protamine Sulfate 50 MG/5 ML VIAL ONE ×2 (06:28→11:09)
[2022-10-15] MEDS ORDERED: Bupivacaine HCl 0.5%/Epinephrine 1:200,000/PF 30 ml Vial ONE ×2 (06:28→11:09)
[2022-10-15] MEDS ORDERED: Heparin 5,000 UNITS/ML VIAL ONE ×2 (06:28→11:09)
[2022-10-15] MEDS ORDERED: Lidocaine 2% PF 5 ML VIAL ONE ×2 (06:32→11:09)
[2022-10-15] MEDS ORDERED: Sodium Chloride 0.9% 100 ML ONE (06:37)
[2022-10-15] MEDS ORDERED: CEFAZOLIN 2 GM VIAL ONE (06:37)
[2022-10-15] MEDS ORDERED: fentaNYL PF 100 MCG/2 ML SYRINGE ONE ×2 (06:41→11:11)
[2022-10-15] MEDS ORDERED: Midazolam HCl 2 mg/2 ml Vial ONE (06:41)
[2022-10-15] MEDS ORDERED: diphenhydrAMINE 50 MG/ML VIAL ONE ×2 (06:45→13:27)
[2022-10-15] MEDS ORDERED: Ondansetron PF 4 MG/2 ML Vial ONE ×2 (06:45→13:27)
[2022-10-15 07:51] LABS: Hemoglobin 9.3 g/dL (12.0-16.0); Mean Corpuscular HGB CONC 32.3 g/dL (32.0-36.0); Mean Corpuscular Hemoglobin 29.3 pg (27.0-31.0); Mean Corpuscular Volume 90.7 fl (78.0-98.0); Platelet Count 46 10x3/uL (130-400); RBC Distribution Width 17.8 % (11.5-14.5); Red Blood Cell (RBC) Count 3.19 mill/uL (4.20-5.40); White Blood Cell (WBC) Count 15.3 10x3/uL (4.8-10.8)
[2022-10-15] MEDS ORDERED: Ropivacaine 0.5% HCl/PF (150 MG/30 ML VIAL) ONE (08:34)
[2022-10-15] MEDS ORDERED: Fentanyl 100 MCG/2 ML VIAL ONE (08:34)
[2022-10-15 10:00] LABS: Band 18 % (5-11); Eosinophils 6 % (0-10); Lymphocytes 14 % (21-51); MDiff Complete? YES; Metamyelocyte 2 % (0-0); Monocytes 5 % (0-10); Myelocyte 1 % (0-0); Neutrophil 53 % (42-75); Nucleated RBC 6 % (0); Platelet Morphology Comment Appears Decreased; Polychromasia MODERATE = 3-4 cells (100X) (0-2/hpf)
[2022-10-15] MEDS ORDERED: Ondansetron HCl/PF 4 MG/2 ML Vial IVP PRN (13:13)
[2022-10-15] MEDS ORDERED: traMADol HCl 50 MG TAB PO PRN (13:34)
[2022-10-15] MEDS: hydrALAZINE 25 MG TAB PO SCH ×3 (14:37→20:39)
[2022-10-15] MEDS: Sodium Bicarbonate Tab 325 MG TAB PO SCH ×3 (14:38→20:39)
[2022-10-15] MEDS: Atorvastatin Calcium 10 MG TAB PO SCH (17:26)
[2022-10-15] MEDS: NIFEdipine XL 90 MG TAB PO SCH (17:26)
[2022-10-15] MEDS: predniSONE 20 MG TAB PO SCH (17:33)
[2022-10-15] MEDS: Allopurinol 100 MG TAB PO SCH (17:33)
[2022-10-15] MEDS: Aspirin 81 mg Enteric Coated Tablet PO SCH (17:37)
[2022-10-15 20:20] VITALS: TEMP 98.1
[2022-10-16 00:03] VITALS: BP 111/64
== END 2022-10-15 21:25 | disposition home or self-care (01) | DRG 264 ==
LOC: ERS 19:05 → 2SW 10-09 00:17 → MSONC 10-12 20:30
PROVIDERS: ADMIT Internal Medicine; ATTEND Internal Medicine
PROC: 30233N1 Transfusion of Nonautologous Red Blood Cells into Peripheral Vein, Percutaneous Approach (ICD-10-PCS; 2022-10-07)
PROC: 02HV33Z Insertion of Infusion Device into Superior Vena Cava, Percutaneous Approach (ICD-10-PCS; 2022-10-09)
PROC: 6A550Z2 Pheresis of Platelets, Single (ICD-10-PCS; principal; 2022-10-15)
PROC: 03180ZD Bypass Left Brachial Artery to Upper Arm Vein, Open Approach (ICD-10-PCS; 2022-10-15)
PROC: 5A1D70Z Performance of Urinary Filtration, Intermittent, Less than 6 Hours Per Day (ICD-10-PCS; 2022-10-15)
DX: I13.0 Hypertensive heart and chronic kidney disease with heart failure and stage 1 through stage 4 chronic kidney disease, or unspecified chronic kidney disease (principal); I50.33 Acute on chronic diastolic (congestive) heart failure; J18.9 Pneumonia, unspecified organism; N18.6 End stage renal disease; N17.9 Acute kidney failure, unspecified; E87.20 Acidosis, unspecified; D75.81 Myelofibrosis; E87.1 Hypo-osmolality and hyponatremia; D84.9 Immunodeficiency, unspecified; Z20.822 Contact with and (suspected) exposure to COVID-19; E11.22 Type 2 diabetes mellitus with diabetic chronic kidney disease; D69.6 Thrombocytopenia, unspecified; M10.9 Gout, unspecified; E11.65 Type 2 diabetes mellitus with hyperglycemia; D63.1 Anemia in chronic kidney disease; I16.0 Hypertensive urgency; Z79.899 Other long term (current) drug therapy; Z79.82 Long term (current) use of aspirin; Z79.52 Long term (current) use of systemic steroids; Z82.49 Family history of ischemic heart disease and other diseases of the circulatory system
CPT/HCPCS: 36415; 36416; 36430; 71045; 80048; 80053; 80069; 80202; 82553; 83735; 83880; 84145; 84443; 84484; 84550; 85025; 86713; 86850; 86900; 86901; 87040; 87081; 87899; 93005; 93306; 96365; 96366; 96375; C1713; C1776; J0692; J1200; J1642; J1644; J1815; J1940; J1956; J2001; J2250; J2405; J2720; J2795; J3010; J3370; J3490; J7050; J7070; J7512; L8670; P9016; P9035

== ENCOUNTER 2022-10-23 07:31 | Inpatient (IN) | payer MEDICARE ==
[2022-10-23 08:36] LABS: Hemoglobin 7.3 g/dL (12.0-16.0); Mean Corpuscular HGB CONC 33.1 g/dL (32.0-36.0); Mean Corpuscular Hemoglobin 30.2 pg (27.0-31.0); Mean Corpuscular Volume 91.2 fl (78.0-98.0)
[2022-10-23 08:39] LABS: ALT (SGPT) Less than 7 U/L (8-55); AST (SGOT) 15 U/L (5-34); Alkaline Phosphatase 161 U/L (40-110); Anion Gap 19 mmol/L (10-20); BUN (Urea Nitrogen) 65 mg/dL (9.8-20.1); Calc. Creatinine Clearance 0 mL/min (70-130); Calcium 9.4 mg/dL (7.8-10.44); Carbon Dioxide 21 mmol/L (23-31); Chloride 103 mmol/L (98-107); Estimated GFR 14; Globulin 2.7 g/dL (2.4-3.5); Glucose 172 mg/dL (83-110); Lipase 76 U/L (8-78); Potassium 5.2 mmol/L (3.5-5.1); Protein, Total 6.7 g/dL (5.8-8.1); Sodium 138 mmol/L (136-145)
[2022-10-23 09:01] LABS: CKMB 1.5 ng/mL (0-6.6)
[2022-10-23 09:10] LABS: Anisocytosis MARKED = >30 cells (100X) (0-5/hpf); Band 7 % (5-11); Blister Cells SLIGHT = 2-5 cells (100X) (0-1/hpf); Eosinophils 1 % (0-10); Large Platelets SLIGHT; Lymphocytes 4 % (21-51); MDiff Complete? YES; Macrocytosis SLIGHT = 6-15 cells (100X) (0-5/hpf); Mean Platelet Volume 11.2 fL (7.4-10.4); Metamyelocyte 2 % (0-0); Monocytes 5 % (0-10); Myelocyte 3 % (0-0); Neutrophil 74 % (42-75); Nucleated RBC 5 % (0); Ovalocytes SLIGHT = 2-5 cells (100X) (0-1/hpf); Platelet Count 76 10x3/uL (130-400); Platelet Morphology Comment Appears Decreased; Polychromasia MODERATE = 3-4 cells (100X) (0-2/hpf); Promyelocytes 1 % (0-0); Tear Drops SLIGHT = 2-5 cells (100X) (0-1/hpf); Vacuoles SLIGHT; White Blood Cell (WBC) Count 23.7 10x3/uL (4.8-10.8)
[2022-10-23 09:43] LABS: SARS-CoV-2 NAA Rapid Test Not Detected (NotDetected)
[2022-10-23] MEDS ORDERED: Heparin 10,000 UNITS/ 10 ML VIAL ONE (10:14)
[2022-10-23 11:22] LABS: Lactic Acid 0.9 mmol/L (0.5-2.2)
[2022-10-23] MEDS ORDERED: Cefepime 2 GM VIAL ONE (13:09)
[2022-10-23] MEDS ORDERED: Vancomycin HCl 750 MG in Sodium Chloride 0.9% 250 ML 250 ML IVPB SCH (13:30)
[2022-10-23] MEDS ORDERED: Ondansetron PF 4 MG/2 ML Vial IVP PRN (14:28)
[2022-10-23] MEDS ORDERED: Furosemide 40 MG/4 ML VIAL ONE (14:29)
[2022-10-23] MEDS ORDERED: Furosemide 40 MG/4 ML VIAL SLOW IVP SCH ×2 (14:30→21:00)
[2022-10-23 14:44] LABS: Troponin I 0.073 ng/mL (< 0.028)
[2022-10-23] MEDS ORDERED: Heparin 5,000 UNITS/ML VIAL SC SCH (15:00)
[2022-10-23] MEDS ORDERED: EPOETIN ALFA-EPBX (ESRD) 10,000 UNIT/ML VIAL SC SCH (15:45)
[2022-10-23] MEDS ORDERED: Vancomycin Dose by Levels Sliding Scale (Wt <71) FS SCH (15:45)
[2022-10-23 17:27] LABS: Troponin I 0.084 ng/mL (< 0.028)
[2022-10-23] MEDS ORDERED: Lidocaine 1% (PF) 30 ML VIAL ONE (18:50)
[2022-10-23] MEDS ORDERED: Vancomycin 1 GM in Premix Bag 1 BAG IVPB SCH (21:00)
[2022-10-23] MEDS ORDERED: Albumin 25% 25 GM/100 ML BOT IVPB SCH (22:15)
[2022-10-23 22:37] LABS: HBSAB Concentration Less than 8.00 mIU/mL; Hep B Core Total Ab Non-Reactive (NonReactive); Hep B Core Total Index 0.12 S/CO (0-0.79); Hep B Surf AB Non-Reactive (NonReactive); Hep B Surf Ag Non-Reactive S/CO (NonReactive); Hep C IgG Ab Non-Reactive (NonReactive); Hep C Index 0.08 S/CO (0-0.79)
[2022-10-23 22:49] LABS: HBSAB Concentration Less than 8.00 mIU/mL; HBSAg Index 0.31 S/CO (0-0.99); Hep B Surf AB Non-Reactive (NonReactive); Hep B Surf Ag Non-Reactive S/CO (NonReactive)
[2022-10-24 00:02] LABS: Base Excess (BEa) 0.1 mEq/L (-2.0 to +3.0); CO2 Tension 34.4 mmHg (35.0-45.0); Calcium, Ionized (arterial) 1.11 mmol/L (1.12-1.30); Carboxyhemoglobin (COHb) 1.3 gm% (0.0-3.0); Potassium - ABG Lab 3.79 mmol/L (3.70-5.30); pH, Arterial 7.46 (7.35-7.45)
[2022-10-24 00:04] LABS: Hemoglobin (Hb) 5.6 g/dL (12.0-16.0); Puncture Site RRA
[2022-10-24 00:56] LABS: Fibrinogen 431 mg/dL (253-463); INR-International Normal Ratio 1.3; Prothrombin Time 16.6 sec (12.0-14.7)
[2022-10-24 00:57] LABS: PTT 86.1 sec (22.9-36.1)
[2022-10-24 01:11] LABS: Platelet Count 53 10x3/uL (130-400)
[2022-10-24 02:07] LABS: Hemoglobin 5.2 g/dL (12.0-16.0); Mean Corpuscular HGB CONC 32.7 g/dL (32.0-36.0); Mean Corpuscular Volume 91.9 fl (78.0-98.0); Mean Platelet Volume 11.1 fL (7.4-10.4); Platelet Count 57 10x3/uL (130-400); Red Blood Cell (RBC) Count 1.72 mill/uL (4.20-5.40); White Blood Cell (WBC) Count 17.3 10x3/uL (4.8-10.8)
[2022-10-24 02:33] LABS: Anisocytosis MODERATE=16-30 cells (100X) (0-5/hpf); Band 24 % (5-11); Blast 2 % (0-0); Eosinophils 2 % (0-10); Lymphocytes 5 % (21-51); MDiff Complete? YES; Metamyelocyte 2 % (0-0); Monocytes 1 % (0-10); Myelocyte 1 % (0-0); Neutrophil 62 % (42-75); Nucleated RBC 5 % (0); Platelet Morphology Comment Appears Decreased
[2022-10-24] MEDS ORDERED: Rocuronium Bromide 10 MG/ML (10ML VIAL) ONE (02:39)
[2022-10-24] MEDS ORDERED: Dextrose 5% in Water 1,000 ML IV PRN (02:43)
[2022-10-24] MEDS ORDERED: Ventilator Sedation Protocol 1 EACH FS SCH (02:43)
[2022-10-24] MEDS ORDERED: Dextrose 50% Abboject 50 ML SYRINGE SLOW IVP PRN (02:43)
[2022-10-24] MEDS ORDERED: Propofol 1,000 MG/100 ML VIAL IV ONE (02:50)
[2022-10-24] MEDS ORDERED: Rocuronium Bromide 10 MG/ML (10ML VIAL) IVP SCH (03:00)
[2022-10-24] MEDS ORDERED: Propofol BOLUS 1,000 MG/100 ML VIAL IV PRN (03:00)
[2022-10-24] MEDS ORDERED: Morphine 2 MG/ML VIAL SLOW IVP PRN (03:00)
[2022-10-24] MEDS ORDERED: Propofol 1,000 MG/100 ML VIAL IV PRN (03:00)
[2022-10-24] MEDS ORDERED: Fentanyl BOLUS 250 ML IVPB PRN (03:00)
[2022-10-24] MEDS ORDERED: DISCONTINUE PREVIOUS NARCOTIC PAIN MEDICATIONS AND BENZODIAZEPINES FS SCH (03:00)
[2022-10-24 03:23] LABS: Actual Bicarbonate (HCO3a) 20.8 mEq/L (22-28); Base Excess (BEa) -5.4 mEq/L (-2.0 to +3.0); CO2 Tension 44.3 mmHg (35.0-45.0); Calcium, Ionized (arterial) 1.16 mmol/L (1.12-1.30); Carboxyhemoglobin (COHb) 0.9 gm% (0.0-3.0); Hemoglobin (Hb) 8.3 g/dL (12.0-16.0); Potassium - ABG Lab 4.82 mmol/L (3.70-5.30); pH, Arterial 7.29 (7.35-7.45)
[2022-10-24 03:26] LABS: O2 Tension (PaO2), arterial 52.2 mmHg (> 70.0); Puncture Site RRA
[2022-10-24 03:27] LABS: ALV-art Gradient 284.575 mmHg (0-20)
[2022-10-24] MEDS: HumaLOG 300 UNITS/3 ML VIAL SC PRN (04:19)
[2022-10-24] MEDS ORDERED: Dexmedetomidine In 0.9 % NaCl 100 ML IVPB SCH (04:45)
[2022-10-24] MEDS: NOREPINEPHRINE 8 MG/250 ML-D5W 250 ML IVPB SCH (06:08)
[2022-10-24 06:13] LABS: Anion Gap 21 mmol/L (10-20); BUN (Urea Nitrogen) 36 mg/dL (9.8-20.1); Calc. Creatinine Clearance 16 mL/min (70-130); Calcium 8.6 mg/dL (7.8-10.44); Carbon Dioxide 17 mmol/L (23-31); Chloride 105 mmol/L (98-107); Estimated GFR 18; Glucose 172 mg/dL (83-110); Phosphorus 4.4 mg/dL (2.3-4.7); Potassium 4.6 mmol/L (3.5-5.1); Sodium 138 mmol/L (136-145)
[2022-10-24 06:24] LABS: ALT (SGPT) 10 U/L (8-55); AST (SGOT) 33 U/L (5-34); Albumin 3.5 g/dL (3.4-4.8); Alkaline Phosphatase 132 U/L (40-110); Bilirubin, Direct 0.7 mg/dL (0.1-0.3); Bilirubin, Total 1.6 mg/dL (0.2-1.2); Protein, Total 5.8 g/dL (5.8-8.1)
[2022-10-24 06:52] LABS: Hemoglobin 6.4 g/dL (12.0-16.0); Mean Corpuscular HGB CONC 33.4 g/dL (32.0-36.0); Mean Corpuscular Volume 89.9 fl (78.0-98.0); Mean Platelet Volume 10.7 fL (7.4-10.4); Platelet Count 48 10x3/uL (130-400); RBC Distribution Width 16.9 % (11.5-14.5); Red Blood Cell (RBC) Count 2.14 mill/uL (4.20-5.40); White Blood Cell (WBC) Count 16.8 10x3/uL (4.8-10.8)
[2022-10-24 06:53] LABS: Anisocytosis MODERATE=16-30 cells (100X) (0-5/hpf); Band 8 % (5-11); Eosinophils 4 % (0-10); Lymphocytes 7 % (21-51); MDiff Complete? YES; Monocytes 3 % (0-10); Neutrophil 78 % (42-75); Nucleated RBC 4 % (0); Platelet Morphology Comment Appears Decreased
[2022-10-24] MEDS: Lorazepam 2 MG/ML VIAL SLOW IVP PRN ×2 (07:06→18:03)
[2022-10-24] MEDS ORDERED: Vecuronium 10 MG VIAL ONE (07:24)
[2022-10-24] MEDS: Vecuronium 10 MG VIAL IVP PRN ×3 (07:29→19:16)
[2022-10-24 07:32] LABS: Actual Bicarbonate (HCO3a) 22.6 mEq/L (22-28); Base Excess (BEa) -0.3 mEq/L (-2.0 to +3.0); CO2 Tension 29.6 mmHg (35.0-45.0); Calcium, Ionized (arterial) 1.07 mmol/L (1.12-1.30); Hemoglobin (Hb) 7.7 g/dL (12.0-16.0)
[2022-10-24 07:33] LABS: O2 Tension (PaO2), arterial 59.2 mmHg (> 70.0); Puncture Site RBA
[2022-10-24] MEDS ORDERED: Fentanyl CADD 100 ML ONE (08:10)
[2022-10-24] MEDS: Pantoprazole 40 MG VIAL IVP SCH (08:16)
[2022-10-24] MEDS ORDERED: Heparin 10,000 UNITS/ 10 ML VIAL ONE (10:18)
[2022-10-24 12:13] LABS: Hemoglobin 8.4 g/dL (12.0-16.0); Platelet Count 49 10x3/uL (130-400)
[2022-10-24] MEDS ORDERED: Albumin 25% 25 GM/100 ML BOT IVPB SCH (12:30)
[2022-10-24] MEDS ORDERED: Cefepime 1 GM in Sodium Chloride 0.9% 100 ML IVPB SCH (13:00)
[2022-10-24 14:47] LABS: Vancomycin, Random 12.1 ug/mL (See Comment)
[2022-10-24] MEDS ORDERED: Vancomycin HCl 500 MG in Sodium Chloride 0.9% 100 ML IV SCH (15:15)
[2022-10-24] MEDS ORDERED: Sterile Water 10 ML ONE (19:13)
[2022-10-25 00:02] LABS: Hemoglobin 8.1 g/dL (12.0-16.0)
[2022-10-25 00:39] LABS: Troponin I 0.791 ng/mL (< 0.028)
[2022-10-25] MEDS ORDERED: Sterile Water 10 ML ONE ×2 (01:49→05:48)
[2022-10-25] MEDS: Vecuronium 10 MG VIAL IVP PRN ×2 (01:51→05:51)
[2022-10-25] MEDS ORDERED: Fentanyl CADD 100 ML ONE (02:29)
[2022-10-25] MEDS: Fentanyl CADD 100 ML IV SCH ×2 (02:35→19:41)
[2022-10-25 04:48] LABS: Anion Gap 19 mmol/L (10-20); BUN (Urea Nitrogen) 36 mg/dL (9.8-20.1); Calc. Creatinine Clearance 14 mL/min (70-130); Calcium 9.6 mg/dL (7.8-10.44); Carbon Dioxide 18 mmol/L (23-31); Chloride 105 mmol/L (98-107); Estimated GFR 16; Glucose 153 mg/dL (83-110); Potassium 3.9 mmol/L (3.5-5.1); Sodium 138 mmol/L (136-145)
[2022-10-25 04:51] LABS: Critical Call Chem Troponin I RESULT DECREASING; Troponin I 0.852 ng/mL (< 0.028)
[2022-10-25 05:13] LABS: Band 6 % (5-11); Eosinophils 2 % (0-10); Hemoglobin 8.2 g/dL (12.0-16.0); Hypochromia SLIGHT = 6-15 cells (100X) (0-5/hpf); Lymphocytes 12 % (21-51); MDiff Complete? YES; Mean Corpuscular HGB CONC 33.9 g/dL (32.0-36.0); Mean Corpuscular Hemoglobin 31.5 pg (27.0-31.0); Mean Corpuscular Volume 92.8 fl (78.0-98.0); Mean Platelet Volume 10.4 fL (7.4-10.4); Metamyelocyte 2 % (0-0); Monocytes 14 % (0-10); Neutrophil 64 % (42-75); Nucleated RBC 1 % (0); Platelet Count 53 10x3/uL (130-400); Platelet Morphology Comment Appears Decreased; RBC Distribution Width 17.1 % (11.5-14.5); White Blood Cell (WBC) Count 18.2 10x3/uL (4.8-10.8)
[2022-10-25 07:26] LABS: Troponin I 0.896 ng/mL (< 0.028)
[2022-10-25 08:13] LABS: Actual Bicarbonate (HCO3a) 21.2 mEq/L (22-28); Base Excess (BEa) -3.1 mEq/L (-2.0 to +3.0); CO2 Tension 34.7 mmHg (35.0-45.0); Calcium, Ionized (arterial) 1.17 mmol/L (1.12-1.30); Carboxyhemoglobin (COHb) 1.7 gm% (0.0-3.0); Hemoglobin (Hb) 8.4 g/dL (12.0-16.0); O2 Tension (PaO2), arterial 85.9 mmHg (> 70.0); Potassium - ABG Lab 3.86 mmol/L (3.70-5.30)
[2022-10-25 08:17] LABS: ALV-art Gradient 155.925 mmHg (0-20); Puncture Site RRA
[2022-10-25] MEDS ORDERED: Heparin 10,000 UNITS/ 10 ML VIAL ONE (08:23)
[2022-10-25] MEDS: Pantoprazole 40 MG VIAL IVP SCH (09:31)
[2022-10-25] MEDS: Lorazepam 2 MG/ML VIAL SLOW IVP PRN ×2 (10:54→14:13)
[2022-10-25] MEDS: EPOETIN ALFA-EPBX (ESRD) 10,000 UNIT/ML VIAL IVP SCH (12:25)
[2022-10-25] MEDS ORDERED: Cefepime 0.5 GM, Admixture Fee 1 EACH in Sodium Chloride 0.9% 100 ML IVPB SCH (13:00)
[2022-10-25] MEDS: NOREPINEPHRINE 8 MG/250 ML-D5W 250 ML IVPB SCH (14:10)
[2022-10-25 15:42] LABS: Vancomycin, Random 11.4 ug/mL (See Comment)
[2022-10-25] MEDS ORDERED: Vancomycin Hemodialysis Sliding Scale FS SCH (16:00)
[2022-10-25] MEDS: Cefepime 0.5 GM, Admixture Fee 1 EACH in Sodium Chloride 0.9% 100 ML IVPB SCH (17:01)
[2022-10-26 04:47] LABS: Anion Gap 21 mmol/L (10-20); BUN (Urea Nitrogen) 37 mg/dL (9.8-20.1); Calc. Creatinine Clearance 12 mL/min (70-130); Calcium 10.1 mg/dL (7.8-10.44); Carbon Dioxide 20 mmol/L (23-31); Chloride 100 mmol/L (98-107); Estimated GFR 14; Glucose 224 mg/dL (83-110); Magnesium 2.1 mg/dL (1.6-2.6); Potassium 3.6 mmol/L (3.5-5.1); Sodium 137 mmol/L (136-145)
[2022-10-26 04:49] LABS: Anisocytosis SLIGHT = 6-15 cells (100X) (0-5/hpf); Band 11 % (5-11); Hemoglobin 9.5 g/dL (12.0-16.0); Lymphocytes 9 % (21-51); MDiff Complete? YES; Mean Corpuscular HGB CONC 32.5 g/dL (32.0-36.0); Mean Corpuscular Hemoglobin 30.1 pg (27.0-31.0); Mean Corpuscular Volume 92.5 fl (78.0-98.0); Mean Platelet Volume 11.2 fL (7.4-10.4); Metamyelocyte 2 % (0-0); Monocytes 2 % (0-10); Neutrophil 75 % (42-75); Nucleated RBC 6 % (0); Platelet Count 52 10x3/uL (130-400); Platelet Morphology Comment Appears Decreased; RBC Distribution Width 17.1 % (11.5-14.5); Red Blood Cell (RBC) Count 3.14 mill/uL (4.20-5.40); White Blood Cell (WBC) Count 22.8 10x3/uL (4.8-10.8)
[2022-10-26] MEDS: HumaLOG 300 UNITS/3 ML VIAL SC PRN ×4 (05:10→22:09)
[2022-10-26 07:48] LABS: Base Excess (BEa) 1.7 mEq/L (-2.0 to +3.0); CO2 Tension 45.5 mmHg (35.0-45.0); Calcium, Ionized (arterial) 1.27 mmol/L (1.12-1.30); Carboxyhemoglobin (COHb) 0.6 gm% (0.0-3.0); Hemoglobin (Hb) 9.7 g/dL (12.0-16.0); O2 Tension (PaO2), arterial 122.8 mmHg (> 70.0); Potassium - ABG Lab 3.63 mmol/L (3.70-5.30); pH, Arterial 7.39 (7.35-7.45)
[2022-10-26 07:49] LABS: ALV-art Gradient 105.525 mmHg (0-20); Puncture Site LRA
[2022-10-26 08:08] LABS: Vancomycin, Random 22.1 ug/mL (See Comment)
[2022-10-26] MEDS: Pantoprazole 40 MG VIAL IVP SCH (08:56)
[2022-10-26] MEDS ORDERED: Heparin 10,000 UNITS/ 10 ML VIAL ONE (09:39)
[2022-10-26] MEDS: Fentanyl CADD 100 ML IV SCH (11:30)
[2022-10-26] MEDS: NOREPINEPHRINE 8 MG/250 ML-D5W 250 ML IVPB SCH (14:53)
[2022-10-26] MEDS: Cefepime 0.5 GM, Admixture Fee 1 EACH in Sodium Chloride 0.9% 100 ML IVPB SCH (15:35)
[2022-10-26] MEDS ORDERED: Activase 2 MG VIAL CATH SCH (16:30)
[2022-10-27] MEDS: Fentanyl CADD 100 ML IV SCH ×2 (03:06→23:02)
[2022-10-27 04:17] LABS: Band 16 % (5-11); Eosinophils 5 % (0-10); Hemoglobin 9.9 g/dL (12.0-16.0); Hypochromia SLIGHT = 6-15 cells (100X) (0-5/hpf); Lymphocytes 13 % (21-51); MDiff Complete? YES; Mean Corpuscular HGB CONC 31.7 g/dL (32.0-36.0); Mean Corpuscular Hemoglobin 29.6 pg (27.0-31.0); Mean Corpuscular Volume 93.4 fl (78.0-98.0); Mean Platelet Volume 9.1 fL (7.4-10.4); Monocytes 1 % (0-10); Neutrophil 65 % (42-75); Nucleated RBC 10 % (0); Platelet Count 55 10x3/uL (130-400); Platelet Morphology Comment Appears Decreased; RBC Distribution Width 17.3 % (11.5-14.5); Red Blood Cell (RBC) Count 3.34 mill/uL (4.20-5.40); White Blood Cell (WBC) Count 27.9 10x3/uL (4.8-10.8)
[2022-10-27 04:18] LABS: Anion Gap 23 mmol/L (10-20); BUN (Urea Nitrogen) 65 mg/dL (9.8-20.1); Calc. Creatinine Clearance 8 mL/min (70-130); Calcium 10.8 mg/dL (7.8-10.44); Carbon Dioxide 19 mmol/L (23-31); Chloride 100 mmol/L (98-107); Estimated GFR 9; Glucose 216 mg/dL (83-110); Magnesium 2.5 mg/dL (1.6-2.6); Potassium 4.4 mmol/L (3.5-5.1); Sodium 138 mmol/L (136-145)
[2022-10-27] MEDS: HumaLOG 300 UNITS/3 ML VIAL SC PRN ×3 (04:30→17:00)
[2022-10-27 07:46] LABS: Vancomycin, Random 21.1 ug/mL (See Comment)
[2022-10-27 08:24] LABS: Actual Bicarbonate (HCO3a) 23.6 mEq/L (22-28); CO2 Tension 43.8 mmHg (35.0-45.0); Calcium, Ionized (arterial) 1.26 mmol/L (1.12-1.30); Carboxyhemoglobin (COHb) 1.1 gm% (0.0-3.0); Hemoglobin (Hb) 10.5 g/dL (12.0-16.0); O2 Tension (PaO2), arterial 84.1 mmHg (> 70.0); Potassium - ABG Lab 4.18 mmol/L (3.70-5.30); pH, Arterial 7.35 (7.35-7.45)
[2022-10-27] MEDS ORDERED: Heparin 10,000 UNITS/ 10 ML VIAL ONE (08:26)
[2022-10-27 08:27] LABS: Puncture Site RRA
[2022-10-27] MEDS: Pantoprazole 40 MG VIAL IVP SCH (08:48)
[2022-10-27] MEDS ORDERED: Lactated Ringer's 500 ML IV SCH ×2 (10:00→16:15)
[2022-10-27 15:13] LABS: Actual Bicarbonate (HCO3v) 23 mEq/L (22-28); Base Excess -3.5 mEq/L (-2.0 to +3.0); Calcium, Ionized (venous) 0.96 mmol/L (1.16-1.32); Chloride (VBG) 100 mmol/L (98-106); Hemoglobin (Hb) 10.7 g/dL (11.7-16.1); Potassium (VBG) 3.85 mmol/L (3.70-5.30); Sodium 138.8 mmol/L (133-146)
[2022-10-27 15:27] LABS: Lactic Acid 3.4 mmol/L (0.5-2.2)
[2022-10-27 16:23] LABS: Anion Gap 22 mmol/L (10-20); BUN (Urea Nitrogen) 48 mg/dL (9.8-20.1); Calc. Creatinine Clearance 11 mL/min (70-130); Calcium 7.9 mg/dL (7.8-10.44); Carbon Dioxide 22 mmol/L (23-31); Chloride 99 mmol/L (98-107); Estimated GFR 14; Glucose 227 mg/dL (83-110); Potassium 3.7 mmol/L (3.5-5.1); Sodium 139 mmol/L (136-145)
[2022-10-27] MEDS ORDERED: Vancomycin HCl 250 MG in Sodium Chloride 0.9% 100 ML IVPB SCH (17:00)
[2022-10-27] MEDS: Cefepime 0.5 GM, Admixture Fee 1 EACH in Sodium Chloride 0.9% 100 ML IVPB SCH (18:05)
[2022-10-27] MEDS: Lactated Ringer's 1,000 ML IV SCH (18:06)
[2022-10-27] MEDS: EPOETIN ALFA-EPBX (ESRD) 10,000 UNIT/ML VIAL IVP SCH (18:06)
[2022-10-27] MEDS: NOREPINEPHRINE 8 MG/250 ML-D5W 250 ML IVPB SCH (22:14)
[2022-10-28] MEDS: Acetaminophen 325 MG TAB PO PRN (00:08)
[2022-10-28 04:15] LABS: Anion Gap 15 mmol/L (10-20); BUN (Urea Nitrogen) 58 mg/dL (9.8-20.1); Calc. Creatinine Clearance 10 mL/min (70-130); Calcium 8.1 mg/dL (7.8-10.44); Carbon Dioxide 24 mmol/L (23-31); Chloride 99 mmol/L (98-107); Estimated GFR 12; Glucose 316 mg/dL (83-110); Magnesium 1.8 mg/dL (1.6-2.6); Potassium 3.4 mmol/L (3.5-5.1); Sodium 135 mmol/L (136-145)
[2022-10-28] MEDS: HumaLOG 300 UNITS/3 ML VIAL SC PRN ×3 (04:26→18:00)
[2022-10-28 04:36] LABS: Anisocytosis SLIGHT = 6-15 cells (100X) (0-5/hpf); Band 25 % (5-11); Blast 2 % (0-0); Eosinophils 1 % (0-10); Hemoglobin 7.8 g/dL (12.0-16.0); Lymphocytes 8 % (21-51); MDiff Complete? YES; Mean Corpuscular HGB CONC 32.9 g/dL (32.0-36.0); Mean Corpuscular Hemoglobin 30.7 pg (27.0-31.0); Mean Corpuscular Volume 93.2 fl (78.0-98.0); Mean Platelet Volume 12.5 fL (7.4-10.4); Metamyelocyte 1 % (0-0); Monocytes 4 % (0-10); Myelocyte 2 % (0-0); Neutrophil 57 % (42-75); Nucleated RBC 3 % (0); Platelet Count 33 10x3/uL (130-400); RBC Distribution Width 17.3 % (11.5-14.5); Red Blood Cell (RBC) Count 2.55 mill/uL (4.20-5.40); Toxic Granulation SLIGHT; White Blood Cell (WBC) Count 13.3 10x3/uL (4.8-10.8)
[2022-10-28] MEDS ORDERED: Potassium Chloride 40 MEQ in Premix Bag 1 BAG IVPB SCH (08:30)
[2022-10-28] MEDS ORDERED: Magnesium 2 GM/50 ML(in water) 2 GM in Premix Bag 1 BAG IVPB SCH (08:30)
[2022-10-28] MEDS ORDERED: Rocuronium Bromide 10 MG/ML (10ML VIAL) ONE (08:43)
[2022-10-28 10:13] LABS: Actual Bicarbonate (HCO3v) 23 mEq/L (22-28); Base Excess -2.8 mEq/L (-2.0 to +3.0); Calcium, Ionized (venous) 1.08 mmol/L (1.16-1.32); Chloride (VBG) 97 mmol/L (98-106); Hemoglobin (Hb) 9.2 g/dL (11.7-16.1); Sodium 134.3 mmol/L (133-146); pH (venous) 7.34 (7.32-7.43)
[2022-10-28] MEDS: Pantoprazole 40 MG VIAL IVP SCH (10:50)
[2022-10-28] MEDS: Potassium Chloride 20 MEQ in Premix Bag 1 BAG IVPB SCH ×2 (11:35→14:00)
[2022-10-28] MEDS: Cefepime 0.5 GM, Admixture Fee 1 EACH in Sodium Chloride 0.9% 100 ML IVPB SCH (18:17)
[2022-10-29 04:42] LABS: Mean Corpuscular HGB CONC 33.7 g/dL (32.0-36.0); Mean Corpuscular Hemoglobin 30.4 pg (27.0-31.0); Mean Corpuscular Volume 90.1 fl (78.0-98.0); Mean Platelet Volume 14.3 fL (7.4-10.4); Platelet Count 29 10x3/uL (130-400); RBC Distribution Width 16.3 % (11.5-14.5); Red Blood Cell (RBC) Count 3.61 mill/uL (4.20-5.40)
[2022-10-29 05:06] LABS: Anion Gap 20 mmol/L (10-20); BUN (Urea Nitrogen) 94 mg/dL (9.8-20.1); Calc. Creatinine Clearance 7 mL/min (70-130); Calcium 9.4 mg/dL (7.8-10.44); Carbon Dioxide 19 mmol/L (23-31); Chloride 101 mmol/L (98-107); Estimated GFR 8; Glucose 178 mg/dL (83-110); Magnesium 2.8 mg/dL (1.6-2.6); Potassium 4.4 mmol/L (3.5-5.1); Sodium 136 mmol/L (136-145)
[2022-10-29 05:18] LABS: Band 19 % (5-11); Eosinophils 1 % (0-10); Lymphocytes 2 % (21-51); MDiff Complete? YES; Monocytes 9 % (0-10); Myelocyte 1 % (0-0); Neutrophil 68 % (42-75); Nucleated RBC 12 % (0); Platelet Morphology Comment Appears Decreased; White Blood Cell (WBC) Count 12.9 10x3/uL (4.8-10.8)
[2022-10-29] MEDS: Pantoprazole 40 MG VIAL IVP SCH (09:52)
[2022-10-29] MEDS ORDERED: Heparin 10,000 UNITS/ 10 ML VIAL ONE (10:12)
[2022-10-29] MEDS: EPOETIN ALFA-EPBX (ESRD) 10,000 UNIT/ML VIAL IVP SCH (10:42)
[2022-10-29] MEDS ORDERED: Meropenem 1 GM in Sodium Chloride 0.9% 100 ML IVPB SCH (11:00)
[2022-10-29] MEDS ORDERED: hydrALAZINE 20 MG/ML VIAL SLOW IVP PRN (16:38)
[2022-10-29] MEDS ORDERED: Labetalol HCl 100 MG/20 ML VIAL SLOW IVP PRN (16:38)
[2022-10-29] MEDS: Carvedilol 6.25 MG TAB PO SCH (17:16)
[2022-10-29] MEDS: Meropenem 500 MG in Sodium Chloride 0.9% 100 ML IVPB SCH (20:11)
[2022-10-29] MEDS: HumaLOG 300 UNITS/3 ML VIAL SC PRN (20:49)
[2022-10-30] MEDS: HumaLOG 300 UNITS/3 ML VIAL SC PRN ×3 (03:18→17:30)
[2022-10-30 03:56] LABS: Anion Gap 22 mmol/L (10-20); BUN (Urea Nitrogen) 64 mg/dL (9.8-20.1); Calc. Creatinine Clearance 10 mL/min (70-130); Calcium 9.5 mg/dL (7.8-10.44); Carbon Dioxide 20 mmol/L (23-31); Chloride 99 mmol/L (98-107); Estimated GFR 12; Glucose 240 mg/dL (83-110); Magnesium 2.5 mg/dL (1.6-2.6); Potassium 3.7 mmol/L (3.5-5.1); Sodium 137 mmol/L (136-145)
[2022-10-30] MEDS: Lactated Ringer's 1,000 ML IV SCH (04:10)
[2022-10-30 07:24] LABS: Anisocytosis SLIGHT = 6-15 cells (100X) (0-5/hpf); Band 19 % (5-11); Blast 2 % (0-0); Eosinophils 1 % (0-10); Hemoglobin 10.9 g/dL (12.0-16.0); Lymphocytes 6 % (21-51); MDiff Complete? YES; Mean Corpuscular Volume 90.7 fl (78.0-98.0); Mean Platelet Volume 13.3 fL (7.4-10.4); Metamyelocyte 1 % (0-0); Monocytes 4 % (0-10); Myelocyte 1 % (0-0); Neutrophil 63 % (42-75); Nucleated RBC 10 % (0); Platelet Count 31 10x3/uL (130-400); Platelet Morphology Comment Appears Decreased; RBC Distribution Width 16.4 % (11.5-14.5); Reactive Lymphocytes 3 % (0-10); Red Blood Cell (RBC) Count 3.76 mill/uL (4.20-5.40); White Blood Cell (WBC) Count 18.7 10x3/uL (4.8-10.8)
[2022-10-30] MEDS: Pantoprazole 40 MG VIAL IVP SCH (08:31)
[2022-10-30] MEDS: Carvedilol 6.25 MG TAB PO SCH ×2 (08:31→17:30)
[2022-10-30] MEDS: Meropenem 500 MG in Sodium Chloride 0.9% 100 ML IVPB SCH (20:17)
[2022-10-31 04:27] LABS: Hemoglobin 10.2 g/dL (12.0-16.0); Mean Corpuscular HGB CONC 31.6 g/dL (32.0-36.0); Mean Corpuscular Hemoglobin 28.8 pg (27.0-31.0); Mean Corpuscular Volume 91.2 fl (78.0-98.0); Mean Platelet Volume 13.8 fL (7.4-10.4); Platelet Count 34 10x3/uL (130-400); RBC Distribution Width 16.8 % (11.5-14.5); Red Blood Cell (RBC) Count 3.55 mill/uL (4.20-5.40)
[2022-10-31] MEDS: Lactated Ringer's 1,000 ML IV SCH ×2 (04:29→20:49)
[2022-10-31 04:45] LABS: Anion Gap 21 mmol/L (10-20); BUN (Urea Nitrogen) 108 mg/dL (9.8-20.1); Calc. Creatinine Clearance 7 mL/min (70-130); Calcium 9.3 mg/dL (7.8-10.44); Carbon Dioxide 21 mmol/L (23-31); Chloride 100 mmol/L (98-107); Estimated GFR 8; Glucose 210 mg/dL (83-110); Magnesium 2.7 mg/dL (1.6-2.6); Potassium 3.7 mmol/L (3.5-5.1); Sodium 138 mmol/L (136-145)
[2022-10-31 04:55] LABS: Band 19 % (5-11); Eosinophils 2 % (0-10); Lymphocytes 9 % (21-51); MDiff Complete? YES; Metamyelocyte 1 % (0-0); Monocytes 3 % (0-10); Myelocyte 5 % (0-0); Neutrophil 61 % (42-75); Nucleated RBC 11 % (0); Platelet Morphology Comment Appears Decreased; White Blood Cell (WBC) Count 18.6 10x3/uL (4.8-10.8)
[2022-10-31] MEDS: HumaLOG 300 UNITS/3 ML VIAL SC PRN ×4 (06:23→22:41)
[2022-10-31] MEDS: Carvedilol 6.25 MG TAB PO SCH ×2 (08:55→17:08)
[2022-10-31] MEDS: Pantoprazole 40 MG VIAL IVP SCH (08:55)
[2022-10-31] MEDS ORDERED: Loperamide HCl 2 MG CAP PER TUBE PRN (11:34)
[2022-10-31] MEDS ORDERED: Saccharomyces boulardii 250 MG CAP PER TUBE SCH (12:00)
[2022-10-31] MEDS: Meropenem 500 MG in Sodium Chloride 0.9% 100 ML IVPB SCH (20:48)
[2022-11-01] MEDS: HumaLOG 300 UNITS/3 ML VIAL SC PRN ×2 (04:35→13:38)
[2022-11-01 08:14] LABS: Anion Gap 23 mmol/L (10-20); Calc. Creatinine Clearance 6 mL/min (70-130); Calcium 8.6 mg/dL (7.8-10.44); Carbon Dioxide 19 mmol/L (23-31); Chloride 97 mmol/L (98-107); Estimated GFR 6; Glucose 157 mg/dL (83-110); Sodium 135 mmol/L (136-145)
[2022-11-01 08:25] LABS: Hemoglobin 9.3 g/dL (12.0-16.0); Mean Corpuscular HGB CONC 32.8 g/dL (32.0-36.0); Mean Corpuscular Hemoglobin 29.6 pg (27.0-31.0); Mean Corpuscular Volume 90.3 fl (78.0-98.0); Mean Platelet Volume 12.7 fL (7.4-10.4); Platelet Count 42 10x3/uL (130-400); RBC Distribution Width 16.6 % (11.5-14.5); Red Blood Cell (RBC) Count 3.15 mill/uL (4.20-5.40)
[2022-11-01 08:26] LABS: BUN (Urea Nitrogen) 146 mg/dL (9.8-20.1)
[2022-11-01] MEDS: Pantoprazole 40 MG VIAL IVP SCH (09:00)
[2022-11-01 09:08] LABS: Band 20 % (5-11); Eosinophils 3 % (0-10); Lymphocytes 11 % (21-51); MDiff Complete? YES; Metamyelocyte 4 % (0-0); Monocytes 5 % (0-10); Myelocyte 8 % (0-0); Neutrophil 46 % (42-75); Nucleated RBC 7 % (0); Platelet Morphology Comment Appears Decreased; Polychromasia MODERATE = 3-4 cells (100X) (0-2/hpf); Reactive Lymphocytes 2 % (0-10); White Blood Cell (WBC) Count 22.4 10x3/uL (4.8-10.8)
[2022-11-01] MEDS: Saccharomyces boulardii 250 MG CAP PER TUBE SCH (09:46)
[2022-11-01] MEDS: Carvedilol 6.25 MG TAB PO SCH ×2 (09:46→21:03)
[2022-11-01] MEDS ORDERED: Heparin 10,000 UNITS/ 10 ML VIAL ONE (10:29)
[2022-11-01] MEDS ORDERED: Tuberculin PPD 0.1 ML VIAL I-DERMAL SCH (11:45)
[2022-11-01] MEDS: EPOETIN ALFA-EPBX (ESRD) 10,000 UNIT/ML VIAL IVP SCH (13:20)
[2022-11-01] MEDS: Acetaminophen 325 MG TAB PO PRN ×2 (13:30→19:46)
[2022-11-01 22:37] LABS: Mycoplasma pneumoniae IgG AB Less than 100 U/mL (0-99); Mycoplasma pneumoniae IgM AB Less than 770 U/mL (0-769)
[2022-11-01] MEDS: Meropenem 500 MG in Sodium Chloride 0.9% 100 ML IVPB SCH (22:44)
[2022-11-02] MEDS: HumaLOG 300 UNITS/3 ML VIAL SC PRN (04:20)
[2022-11-02 07:49] LABS: Hemoglobin 8.1 g/dL (12.0-16.0); Mean Corpuscular HGB CONC 33.1 g/dL (32.0-36.0); Mean Corpuscular Hemoglobin 30.1 pg (27.0-31.0); Mean Corpuscular Volume 90.9 fl (78.0-98.0); Mean Platelet Volume 12.7 fL (7.4-10.4); Platelet Count 42 10x3/uL (130-400); White Blood Cell (WBC) Count 17.3 10x3/uL (4.8-10.8)
[2022-11-02 08:09] LABS: Anion Gap 17 mmol/L (10-20); BUN (Urea Nitrogen) 55 mg/dL (9.8-20.1); Calc. Creatinine Clearance 13 mL/min (70-130); Calcium 8.1 mg/dL (7.8-10.44); Carbon Dioxide 20 mmol/L (23-31); Chloride 103 mmol/L (98-107); Estimated GFR 15; Glucose 151 mg/dL (83-110); Potassium 3.7 mmol/L (3.5-5.1); Sodium 136 mmol/L (136-145)
[2022-11-02] MEDS: Carvedilol 6.25 MG TAB PO SCH ×2 (08:55→18:02)
[2022-11-02] MEDS: Saccharomyces boulardii 250 MG CAP PER TUBE SCH (08:55)
[2022-11-02] MEDS: Lansoprazole 15 MG/5 ML (BATCHED)UDCUP PO SCH (08:55)
[2022-11-02 09:15] LABS: Band 15 % (5-11); Eosinophils 3 % (0-10); Lymphocytes 11 % (21-51); MDiff Complete? YES; Metamyelocyte 13 % (0-0); Monocytes 4 % (0-10); Myelocyte 9 % (0-0); Neutrophil 44 % (42-75); Nucleated RBC 7 % (0); Platelet Morphology Comment Appears Adequate; Polychromasia MODERATE = 3-4 cells (100X) (0-2/hpf); Promyelocytes 1 % (0-0); Tear Drops SLIGHT = 2-5 cells (100X) (0-1/hpf)
[2022-11-02] MEDS: Acetaminophen 325 MG TAB PO PRN (19:47)
[2022-11-02] MEDS: Meropenem 500 MG in Sodium Chloride 0.9% 100 ML IVPB SCH (20:00)
[2022-11-03 07:01] LABS: Hemoglobin 7.5 g/dL (12.0-16.0); Mean Corpuscular HGB CONC 33.1 g/dL (32.0-36.0); Mean Corpuscular Hemoglobin 30.2 pg (27.0-31.0); Mean Corpuscular Volume 91.2 fl (78.0-98.0); Mean Platelet Volume 12.2 fL (7.4-10.4); Platelet Count 46 10x3/uL (130-400); RBC Distribution Width 16.2 % (11.5-14.5); Red Blood Cell (RBC) Count 2.49 mill/uL (4.20-5.40); White Blood Cell (WBC) Count 20.1 10x3/uL (4.8-10.8)
[2022-11-03 07:09] LABS: Anion Gap 16 mmol/L (10-20); BUN (Urea Nitrogen) 79 mg/dL (9.8-20.1); Calc. Creatinine Clearance 9 mL/min (70-130); Calcium 8.3 mg/dL (7.8-10.44); Carbon Dioxide 24 mmol/L (23-31); Chloride 99 mmol/L (98-107); Estimated GFR 10; Glucose 147 mg/dL (83-110); Sodium 135 mmol/L (136-145)
[2022-11-03] MEDS ORDERED: Heparin 10,000 UNITS/ 10 ML VIAL ONE (08:50)
[2022-11-03 09:25] LABS: Band 23 % (5-11); Eosinophils 2 % (0-10); Lymphocytes 15 % (21-51); MDiff Complete? YES; Metamyelocyte 6 % (0-0); Monocytes 7 % (0-10); Myelocyte 12 % (0-0); Neutrophil 34 % (42-75); Nucleated RBC 3 % (0); Platelet Morphology Comment Appears Decreased; Polychromasia MODERATE = 3-4 cells (100X) (0-2/hpf)
[2022-11-03] MEDS ORDERED: Pantoprazole 40 MG VIAL IVP SCH (09:45)
[2022-11-03] MEDS ORDERED: Albumin 25% 25 GM/100 ML BOT IVPB PRN (10:08)
[2022-11-03] MEDS: EPOETIN ALFA-EPBX (ESRD) 10,000 UNIT/ML VIAL IVP SCH (10:31)
[2022-11-03] MEDS: Carvedilol 6.25 MG TAB PO SCH ×2 (10:32→17:42)
[2022-11-03] MEDS: Lansoprazole 15 MG/5 ML (BATCHED)UDCUP PO SCH (10:51)
[2022-11-03] MEDS: Saccharomyces boulardii 250 MG CAP PER TUBE SCH (12:50)
[2022-11-03] MEDS: Acetaminophen 325 MG TAB PO PRN ×4 (14:09→22:51)
[2022-11-03 14:28] LABS: Hemoglobin 6.6 g/dL (12.0-16.0)
[2022-11-03] MEDS: READ PPD TEST SITE PO SCH (15:03)
[2022-11-03] MEDS: Meropenem 500 MG in Sodium Chloride 0.9% 100 ML IVPB SCH (21:48)
[2022-11-03] MEDS: Pantoprazole 40 MG VIAL IVP SCH (21:48)
[2022-11-04 00:11] LABS: Hemoglobin 8.3 g/dL (12.0-16.0)
[2022-11-04] MEDS: Acetaminophen 325 MG TAB PO PRN (06:07)
[2022-11-04] MEDS ORDERED: Ondansetron PF 4 MG/2 ML Vial ONE (10:23)
[2022-11-04] MEDS ORDERED: PROPOFOL 200 MG/20 ML VIAL ONE (10:23)
[2022-11-04] MEDS ORDERED: Lidocaine 1% PF 5 ML VIAL ONE (10:23)
[2022-11-04] MEDS ORDERED: Dexamethasone 20 MG/5 ML VIAL ONE (10:23)
[2022-11-04] MEDS: Saccharomyces boulardii 250 MG CAP PER TUBE SCH (11:00)
[2022-11-04] MEDS: Pantoprazole 40 MG VIAL IVP SCH ×2 (11:00→20:15)
[2022-11-04] MEDS: Carvedilol 6.25 MG TAB PO SCH ×2 (11:26→17:49)
[2022-11-04 13:51] LABS: Hemoglobin 7.3 g/dL (12.0-16.0); Mean Corpuscular HGB CONC 34.1 g/dL (32.0-36.0); Mean Corpuscular Hemoglobin 30.6 pg (27.0-31.0); Mean Corpuscular Volume 89.9 fl (78.0-98.0); Mean Platelet Volume 11.2 fL (7.4-10.4); Platelet Count 36 10x3/uL (130-400); RBC Distribution Width 16.3 % (11.5-14.5); Red Blood Cell (RBC) Count 2.38 mill/uL (4.20-5.40)
[2022-11-04 14:04] LABS: Anion Gap 15 mmol/L (10-20); BUN (Urea Nitrogen) 43 mg/dL (9.8-20.1); Calc. Creatinine Clearance 11 mL/min (70-130); Carbon Dioxide 24 mmol/L (23-31); Chloride 104 mmol/L (98-107); Estimated GFR 13; Glucose 84 mg/dL (83-110); Potassium 3.5 mmol/L (3.5-5.1); Sodium 139 mmol/L (136-145)
[2022-11-04 14:10] LABS: Anisocytosis SLIGHT = 6-15 cells (100X) (0-5/hpf); Band 19 % (5-11); Basophilic Stippling SLIGHT = 1-2 cells (100X) (None Seen); Eosinophils 3 % (0-10); Lymphocytes 6 % (21-51); MDiff Complete? YES; Metamyelocyte 10 % (0-0); Monocytes 1 % (0-10); Myelocyte 10 % (0-0); Neutrophil 48 % (42-75); Nucleated RBC 2 % (0); Platelet Morphology Comment Appears Decreased; Polychromasia MODERATE = 3-4 cells (100X) (0-2/hpf); Promyelocytes 2 % (0-0); White Blood Cell (WBC) Count 14.8 10x3/uL (4.8-10.8)
[2022-11-04] MEDS: READ PPD TEST SITE PO SCH (14:45)
[2022-11-04] MEDS: Dextrose 5%-Lactated Ringers 1,000 ML IV SCH (14:45)
[2022-11-04] MEDS: traMADol HCl 50 MG TAB PO PRN ×2 (15:08→22:15)
[2022-11-04] MEDS ORDERED: GoLYTELY 4,000 ml Bottle PER TUBE SCH (17:00)
[2022-11-04] MEDS: Meropenem 500 MG in Sodium Chloride 0.9% 100 ML IVPB SCH (20:15)
[2022-11-05] MEDS: Dextrose 5%-Lactated Ringers 1,000 ML IV SCH (03:43)
[2022-11-05 06:23] LABS: Anion Gap 17 mmol/L (10-20); BUN (Urea Nitrogen) 40 mg/dL (9.8-20.1); Calc. Creatinine Clearance 10 mL/min (70-130); Calcium 7.6 mg/dL (7.8-10.44); Carbon Dioxide 23 mmol/L (23-31); Chloride 101 mmol/L (98-107); Estimated GFR 12; Glucose 90 mg/dL (83-110); Potassium 3.5 mmol/L (3.5-5.1); Sodium 137 mmol/L (136-145)
[2022-11-05 06:33] LABS: Band 16 % (5-11); Eosinophils 1 % (0-10); Lymphocytes 6 % (21-51); MDiff Complete? YES; Mean Corpuscular HGB CONC 33.9 g/dL (32.0-36.0); Mean Corpuscular Hemoglobin 30.3 pg (27.0-31.0); Mean Corpuscular Volume 89.2 fl (78.0-98.0); Mean Platelet Volume 10.5 fL (7.4-10.4); Monocytes 17 % (0-10); Neutrophil 60 % (42-75); Platelet Count 44 10x3/uL (130-400); Platelet Morphology Comment Appears Decreased; RBC Distribution Width 16.2 % (11.5-14.5); RBC Morphology Normal; Red Blood Cell (RBC) Count 2.64 mill/uL (4.20-5.40); White Blood Cell (WBC) Count 16.6 10x3/uL (4.8-10.8)
[2022-11-05] MEDS ORDERED: Heparin 10,000 UNITS/ 10 ML VIAL ONE (08:45)
[2022-11-05] MEDS: Pantoprazole 40 MG VIAL IVP SCH ×2 (09:23→12:02)
[2022-11-05 10:03] LABS: Potassium 3.5 mmol/L (3.5-5.1)
[2022-11-05] MEDS ORDERED: PROPOFOL 200 MG/20 ML VIAL ONE (10:22)
[2022-11-05 10:50] VITALS: BMI 21.0
[2022-11-05] MEDS: Saccharomyces boulardii 250 MG CAP PER TUBE SCH (12:02)
[2022-11-05] MEDS: Carvedilol 6.25 MG TAB PO SCH ×2 (12:02→17:21)
[2022-11-05] MEDS: traMADol HCl 50 MG TAB PO PRN (12:08)
[2022-11-05] MEDS: EPOETIN ALFA-EPBX (ESRD) 10,000 UNIT/ML VIAL IVP SCH (14:39)
[2022-11-05] MEDS ORDERED: Cepastat Lozenges 1 LOZ PO PRN (18:19)
[2022-11-05] MEDS: Meropenem 500 MG in Sodium Chloride 0.9% 100 ML IVPB SCH (20:48)
[2022-11-06 04:30] LABS: Anion Gap 13 mmol/L (10-20); BUN (Urea Nitrogen) 19 mg/dL (9.8-20.1); Calc. Creatinine Clearance 15 mL/min (70-130); Calcium 8.1 mg/dL (7.8-10.44); Carbon Dioxide 26 mmol/L (23-31); Chloride 101 mmol/L (98-107); Estimated GFR 19; Glucose 136 mg/dL (83-110); Potassium 3.9 mmol/L (3.5-5.1); Sodium 136 mmol/L (136-145)
[2022-11-06 04:35] LABS: Anisocytosis SLIGHT = 6-15 cells (100X) (0-5/hpf); Band 13 % (5-11); Hemoglobin 8.8 g/dL (12.0-16.0); Large Platelets SLIGHT; Lymphocytes 6 % (21-51); MDiff Complete? YES; Mean Corpuscular Hemoglobin 29.7 pg (27.0-31.0); Mean Platelet Volume 10.6 fL (7.4-10.4); Metamyelocyte 3 % (0-0); Monocytes 2 % (0-10); Myelocyte 1 % (0-0); Neutrophil 75 % (42-75); Nucleated RBC 1 % (0); Platelet Count 58 10x3/uL (130-400); Platelet Morphology Comment Appears Decreased; Polychromasia SLIGHT = 2-3 cells (100X) (0-2/hpf); RBC Distribution Width 16.2 % (11.5-14.5); Red Blood Cell (RBC) Count 2.95 mill/uL (4.20-5.40); White Blood Cell (WBC) Count 20.3 10x3/uL (4.8-10.8)
[2022-11-06] MEDS: traMADol HCl 50 MG TAB PO PRN ×3 (08:27→21:14)
[2022-11-06] MEDS: Carvedilol 6.25 MG TAB PO SCH ×2 (08:27→16:37)
[2022-11-06] MEDS: Saccharomyces boulardii 250 MG CAP PER TUBE SCH (08:28)
[2022-11-06] MEDS: Meropenem 500 MG in Sodium Chloride 0.9% 100 ML IVPB SCH (21:07)
[2022-11-06] MEDS ORDERED: traMADol HCl 50 MG TAB PO SCH (23:59)
[2022-11-06] MEDS ORDERED: Acetaminophen 500 MG TAB PO SCH (23:59)
[2022-11-07 00:09] LABS: Hemoglobin 8.3 g/dL (12.0-16.0)
[2022-11-07 06:37] LABS: Anion Gap 14 mmol/L (10-20); BUN (Urea Nitrogen) 28 mg/dL (9.8-20.1); Calc. Creatinine Clearance 10 mL/min (70-130); Calcium 7.5 mg/dL (7.8-10.44); Carbon Dioxide 24 mmol/L (23-31); Chloride 102 mmol/L (98-107); Estimated GFR 11; Glucose 75 mg/dL (83-110); Potassium 3.9 mmol/L (3.5-5.1); Sodium 136 mmol/L (136-145)
[2022-11-07 06:55] LABS: Anisocytosis SLIGHT = 6-15 cells (100X) (0-5/hpf); Band 28 % (5-11); Eosinophils 4 % (0-10); Hemoglobin 8.3 g/dL (12.0-16.0); Lymphocytes 4 % (21-51); MDiff Complete? YES; Mean Corpuscular HGB CONC 33.6 g/dL (32.0-36.0); Mean Corpuscular Hemoglobin 30.3 pg (27.0-31.0); Mean Corpuscular Volume 90.3 fl (78.0-98.0); Mean Platelet Volume 9.8 fL (7.4-10.4); Metamyelocyte 2 % (0-0); Monocytes 7 % (0-10); Myelocyte 1 % (0-0); Neutrophil 54 % (42-75); Nucleated RBC 1 % (0); Platelet Count 58 10x3/uL (130-400); Platelet Morphology Comment Appears Decreased; Polychromasia MODERATE = 3-4 cells (100X) (0-2/hpf); RBC Distribution Width 15.9 % (11.5-14.5); Red Blood Cell (RBC) Count 2.74 mill/uL (4.20-5.40); Tear Drops SLIGHT = 2-5 cells (100X) (0-1/hpf); White Blood Cell (WBC) Count 18.1 10x3/uL (4.8-10.8)
[2022-11-07] MEDS: Carvedilol 6.25 MG TAB PO SCH ×2 (08:50→17:21)
[2022-11-07] MEDS: Saccharomyces boulardii 250 MG CAP PER TUBE SCH (08:50)
[2022-11-07] MEDS ORDERED: Amlodipine 5 MG TAB PO SCH (11:00)
[2022-11-07] MEDS: traMADol HCl 50 MG TAB PO PRN (14:52)
[2022-11-07] MEDS: Meropenem 500 MG in Sodium Chloride 0.9% 100 ML IVPB SCH (21:40)
[2022-11-08] MEDS: traMADol HCl 50 MG TAB PO PRN ×3 (00:26→17:32)
[2022-11-08] MEDS: Acetaminophen 325 MG TAB PO PRN (00:26)
[2022-11-08] MEDS ORDERED: traMADol HCl 50 MG TAB PO SCH ×2 (02:15→20:15)
[2022-11-08] MEDS: Amlodipine 5 MG TAB PO SCH (08:07)
[2022-11-08] MEDS: Saccharomyces boulardii 250 MG CAP PER TUBE SCH (08:07)
[2022-11-08] MEDS: Carvedilol 6.25 MG TAB PO SCH ×2 (08:07→17:30)
[2022-11-08] MEDS ORDERED: Heparin 10,000 UNITS/ 10 ML VIAL ONE (08:41)
[2022-11-08] MEDS ORDERED: Iopamidol 370 76% 100 ML VIAL ONE (09:11)
[2022-11-08] MEDS: EPOETIN ALFA-EPBX (ESRD) 10,000 UNIT/ML VIAL IVP SCH (13:13)
[2022-11-08] MEDS ORDERED: Lidocaine 1% (PF) 30 ML VIAL ONE (15:07)
[2022-11-08] MEDS ORDERED: Acetaminophen 500 MG TAB PO SCH (20:15)
[2022-11-08] MEDS: Meropenem 500 MG in Sodium Chloride 0.9% 100 ML IVPB SCH (20:41)
[2022-11-09] MEDS ORDERED: Morphine 2 MG/ML VIAL SLOW IVP SCH (01:45)
[2022-11-09] MEDS: traMADol HCl 50 MG TAB PO PRN (04:39)
[2022-11-09] MEDS: Acetaminophen 325 MG TAB PO PRN (04:39)
[2022-11-09 05:07] LABS: Anion Gap 13 mmol/L (10-20); BUN (Urea Nitrogen) 14 mg/dL (9.8-20.1); Calc. Creatinine Clearance 14 mL/min (70-130); Calcium 8.1 mg/dL (7.8-10.44); Carbon Dioxide 30 mmol/L (23-31); Chloride 99 mmol/L (98-107); Estimated GFR 18; Glucose 75 mg/dL (83-110); Potassium 4.1 mmol/L (3.5-5.1); Sodium 138 mmol/L (136-145)
[2022-11-09 05:25] LABS: Anisocytosis SLIGHT = 6-15 cells (100X) (0-5/hpf); Band 19 % (5-11); Basophilic Stippling SLIGHT = 1-2 cells (100X) (None Seen); Hemoglobin 7.8 g/dL (12.0-16.0); Lymphocytes 9 % (21-51); MDiff Complete? YES; Mean Corpuscular HGB CONC 32.9 g/dL (32.0-36.0); Mean Corpuscular Volume 91.2 fl (78.0-98.0); Mean Platelet Volume 9.1 fL (7.4-10.4); Metamyelocyte 3 % (0-0); Monocytes 2 % (0-10); Neutrophil 65 % (42-75); Platelet Count 66 10x3/uL (130-400); Platelet Morphology Comment Appears Decreased; Polychromasia SLIGHT = 2-3 cells (100X) (0-2/hpf); RBC Distribution Width 15.7 % (11.5-14.5); Red Blood Cell (RBC) Count 2.59 mill/uL (4.20-5.40); White Blood Cell (WBC) Count 11.1 10x3/uL (4.8-10.8)
[2022-11-09] MEDS: Carvedilol 6.25 MG TAB PO SCH ×2 (08:35→16:31)
[2022-11-09] MEDS: Saccharomyces boulardii 250 MG CAP PER TUBE SCH (08:37)
[2022-11-09] MEDS: Amlodipine 5 MG TAB PO SCH (08:37)
[2022-11-09] MEDS ORDERED: Iopamidol 300 61% 100 ML VIAL FS ONE (09:36)
[2022-11-09] MEDS ORDERED: HYDROcodone/Acetaminophen 5/325 mg Tablet PO PRN (12:24)
[2022-11-09] MEDS: Meropenem 500 MG in Sodium Chloride 0.9% 100 ML IVPB SCH (20:54)
[2022-11-09] MEDS: HYDROcodone/Acetaminophen 5/325 mg Tablet PO PRN (20:55)
[2022-11-10] MEDS: HYDROcodone/Acetaminophen 5/325 mg Tablet PO PRN ×4 (03:39→17:56)
[2022-11-10 07:36] LABS: Anion Gap 14 mmol/L (10-20); BUN (Urea Nitrogen) 22 mg/dL (9.8-20.1); Calc. Creatinine Clearance 10 mL/min (70-130); Calcium 7.4 mg/dL (7.8-10.44); Carbon Dioxide 25 mmol/L (23-31); Chloride 98 mmol/L (98-107); Estimated GFR 11; Glucose 106 mg/dL (83-110); Potassium 4.4 mmol/L (3.5-5.1); Sodium 133 mmol/L (136-145)
[2022-11-10 07:38] LABS: Hemoglobin 7.6 g/dL (12.0-16.0); Mean Corpuscular HGB CONC 33.3 g/dL (32.0-36.0); Mean Corpuscular Hemoglobin 30.6 pg (27.0-31.0); Mean Corpuscular Volume 91.8 fl (78.0-98.0); Mean Platelet Volume 8.1 fL (7.4-10.4); Platelet Count 77 10x3/uL (130-400); RBC Distribution Width 15.5 % (11.5-14.5); White Blood Cell (WBC) Count 8.5 10x3/uL (4.8-10.8)
[2022-11-10] MEDS: Saccharomyces boulardii 250 MG CAP PER TUBE SCH (08:27)
[2022-11-10] MEDS: Amlodipine 5 MG TAB PO SCH (08:27)
[2022-11-10] MEDS: Carvedilol 6.25 MG TAB PO SCH ×2 (08:27→17:55)
[2022-11-10 08:40] LABS: Band 27 % (5-11); Lymphocytes 10 % (21-51); MDiff Complete? YES; Metamyelocyte 2 % (0-0); Monocytes 4 % (0-10); Myelocyte 3 % (0-0); Neutrophil 50 % (42-75); Nucleated RBC 1 % (0); Platelet Morphology Comment Appears Adequate; Polychromasia SLIGHT = 2-3 cells (100X) (0-2/hpf); Reactive Lymphocytes 2 % (0-10)
[2022-11-10] MEDS: EPOETIN ALFA-EPBX (ESRD) 10,000 UNIT/ML VIAL IVP SCH (15:37)
[2022-11-10 16:43] VITALS: BP 114/52; TEMP 98.8
== END 2022-11-10 18:33 | disposition home health service (06) | DRG 853 ==
LOC: ERS 07:31 → IMCU/EMU 16:00 → CCU 10-24 02:27 → T4-A 11-02 18:33
PROVIDERS: ADMIT Internal Medicine; ATTEND Internal Medicine
PROC: 5A09557 Assistance with Respiratory Ventilation, Greater than 96 Consecutive Hours, Continuous Positive Airway Pressure (ICD-10-PCS; 2022-10-23)
PROC: 3E03329 Introduction of Other Anti-infective into Peripheral Vein, Percutaneous Approach (ICD-10-PCS; 2022-10-23)
PROC: 4A133R1 Monitoring of Arterial Saturation, Peripheral, Percutaneous Approach (ICD-10-PCS; 2022-10-23)
PROC: 06HY33Z Insertion of Infusion Device into Lower Vein, Percutaneous Approach (ICD-10-PCS; 2022-10-23)
PROC: 5A1D70Z Performance of Urinary Filtration, Intermittent, Less than 6 Hours Per Day (ICD-10-PCS; 2022-10-23)
PROC: 5A1955Z Respiratory Ventilation, Greater than 96 Consecutive Hours (ICD-10-PCS; 2022-10-24)
PROC: 0BH17EZ Insertion of Endotracheal Airway into Trachea, Via Natural or Artificial Opening (ICD-10-PCS; 2022-10-24)
PROC: 3E033XZ Introduction of Vasopressor into Peripheral Vein, Percutaneous Approach (ICD-10-PCS; 2022-10-24)
PROC: 0D9770Z Drainage of Stomach, Pylorus with Drainage Device, Via Natural or Artificial Opening (ICD-10-PCS; 2022-10-24)
PROC: 30233N1 Transfusion of Nonautologous Red Blood Cells into Peripheral Vein, Percutaneous Approach (ICD-10-PCS; 2022-10-24)
PROC: 0DB78ZX Excision of Stomach, Pylorus, Via Natural or Artificial Opening Endoscopic, Diagnostic (ICD-10-PCS; 2022-11-04)
PROC: 0DBN8ZX Excision of Sigmoid Colon, Via Natural or Artificial Opening Endoscopic, Diagnostic (ICD-10-PCS; 2022-11-05)
PROC: 06H03DZ Insertion of Intraluminal Device into Inferior Vena Cava, Percutaneous Approach (ICD-10-PCS; 2022-11-08)
PROC: 037Y3ZZ Dilation of Upper Artery, Percutaneous Approach (ICD-10-PCS; principal; 2022-11-09)
DX: A41.51 Sepsis due to Escherichia coli [E. coli] (principal); G93.41 Metabolic encephalopathy; J80 Acute respiratory distress syndrome; N18.6 End stage renal disease; I21.A1 Myocardial infarction type 2; R65.21 Severe sepsis with septic shock; J15.9 Unspecified bacterial pneumonia; D75.81 Myelofibrosis; N17.9 Acute kidney failure, unspecified; E87.20 Acidosis, unspecified; I13.2 Hypertensive heart and chronic kidney disease with heart failure and with stage 5 chronic kidney disease, or end stage renal disease; I50.32 Chronic diastolic (congestive) heart failure; N25.81 Secondary hyperparathyroidism of renal origin; Z16.12 Extended spectrum beta lactamase (ESBL) resistance; D62 Acute posthemorrhagic anemia; K55.9 Vascular disorder of intestine, unspecified; D61.818 Other pancytopenia; Z51.5 Encounter for palliative care; Z20.822 Contact with and (suspected) exposure to COVID-19; D63.1 Anemia in chronic kidney disease; E87.70 Fluid overload, unspecified; E11.22 Type 2 diabetes mellitus with diabetic chronic kidney disease; E87.5 Hyperkalemia; E87.6 Hypokalemia; E83.42 Hypomagnesemia; E88.09 Other disorders of plasma-protein metabolism, not elsewhere classified; K29.00 Acute gastritis without bleeding; R13.10 Dysphagia, unspecified; Z79.82 Long term (current) use of aspirin; Z79.52 Long term (current) use of systemic steroids; Z79.899 Other long term (current) drug therapy
CPT/HCPCS: 31500; 36415; 36416; 36430; 36600; 36901; 37191; 71045; 74018; 74230; 75825; 80048; 80053; 80076; 80202; 82010; 82274; 82533; 82553; 82805; 83605; 83690; 83735; 83880; 84100; 84145; 84484; 85025; 85049; 85300; 85362; 85379; 85384; 85610; 85730; 86140; 86580; 86704; 86706; 86850; 86900; 86901; 87040; 87077; 87149; 87186; 87324; 87340; 87449; 87811; 88305; 88341; 88342; 90935; 93005; 93010; 93306; 94003; 94660; 96365; 96367; 96375; 97139; C1725; C1769; C1880; C1894; C9113; G0257; J0360; J0692; J1100; J1642; J1644; J1815; J1940; J2001; J2060; J2185; J2272; J2405; J2704; J2997; J3010; J3370; J3371; J3475; J3480; J3490; J7050; J7120; P9016; P9047; Q5105; Q9967

== ENCOUNTER 2024-08-24 09:56 | Outpatient (CLI) | payer MEDICARE | END 2024-08-24 09:57 | disposition home or self-care (01) | LOC: SCSRAD 09:56 | PROVIDERS: ATTEND Family Medicine | DX: M54.6 Pain in thoracic spine (principal); M47.816 Spondylosis without myelopathy or radiculopathy, lumbar region; M89.9 Disorder of bone, unspecified | CPT/HCPCS: 72072; 72100 ==

== ENCOUNTER 2025-06-28 11:33 | Outpatient (CLI) | payer MEDICARE | END 2025-06-28 11:34 | disposition home or self-care (01) | LOC: SCSRAD 11:33 | PROVIDERS: ATTEND Family Medicine | DX: M79.672 Pain in left foot (principal) | CPT/HCPCS: 36415; 82607 ==